=== PATIENT | male | born 1940 | race Caucasian/White ===

== ENCOUNTER 2021-11-13 19:26 | Inpatient (IN) | payer MEDICARE, BC ==
[~2021-11-13] VITALS: Ht 170.2 cm; Wt 78.9 kg
--- NOTE | 2021-11-13 19:30 | NUR ---
BIBRA FOR C/O O2 DESATURATION. AT [facility] PT USES 10LPM 02 VIA NC AND MASK AT HOME DUE TO HX OF CHF AND COPD. PER SON, PT HAS BEEN DESATURATING FOR THE PAST 3DAYS THE HIGHEST BEING 80S O2 SAT. TODAY PT WAS NOTED TO HAVE O2 IN THE 30S WITH INCREASED SOB AND PALE SKIN. WAS GIVEN NITRO AND ALBUTEROL EMBEDDER AND PLACED ON CPAP WITH EMS. PT CHANGED INTO GOWN AND PLACED ON MONITOR. RT AND MD AT BEDSIDE.
--- NOTE | 2021-11-13 19:30 | NUR ---
Note undone in ED - 11/13/21 at 2023 by SHARI 81-year-old male with a history of COPD, CHF presenting with hypoxic respiratory distress. The patient cannot provide any additional history at this time secondary to respiratory distress. The patient's son states that over the last 3 days his oxygen saturations have continued to decrease. Patient has been at most of the last few days with O2 saturations in the upper 80s despite using both nasal cannula and simple mask on their high settings. This evening patient continued to have increased shortness of breath and was lying down trying to rest when patient son noted that his O2 saturations were in the 30s and the patient was pale. EMS was called and found the patient satting in the 60s. They placed the patient on CPAP and gave nitroglycerin and albuterol with improvement of his oxygen saturations BIBRA FOR C/O O2 DESATURATION. AT [facility] PT USES 10LPM 02 VIA NC AND MASK AT HOME DUE TO HX OF CHF AND COPD. PER SON, PT HAS BEEN DESATURATING FOR THE PAST 3DAYS THE HIGHEST BEING 80S O2 SAT. TODAY PT WAS NOTED TO HAVE O2 IN THE 30S WITH INCREASED SOB AND PALE SKIN. WAS GIVEN NITRO AND ALBUTEROL MEDICAL SCIENTIFIC OFFICER AND PLACED ON CPAP WITH EMS. PT CHANGED INTO GOWN AND PLACED ON MONITOR. RT AND MD AT BEDSIDE.
--- NOTE | 2021-11-13 19:31 | NUR ---
EMT AT BEDSIDE FOR EKG
--- NOTE | 2021-11-13 19:36 | NUR ---
20G IV LINE ESTABLISHED AT . BLOOD DRAWN AND SENT TO LAB.
--- NOTE | 2021-11-13 19:44 | NUR ---
XRAY AT BEDSIDE
--- NOTE | 2021-11-13 19:47 | NUR ---
COVID SWAB COLLECTED AND SENT TO LAB
[2021-11-13] MEDS ORDERED: methylPREDNISolone SOD SUCC 125 MG/2ML VIAL ONE (19:49)
[2021-11-13] MEDS ORDERED: TERBUTALINE SULFATE 1 MG/ML VIAL ONE (19:49)
[2021-11-13] MEDS ORDERED: Magnesium 1GM/D5W 100ML PREMIX 200 ML IV ONE ×2 (19:49→20:00)
--- NOTE | 2021-11-13 19:57 | NUR ---
MRSA SWAB COLLECTED AND SENT TO LAB. PATIENT'S BELONGINGS LIST DONE.
--- NOTE | 2021-11-13 19:58 | NUR ---
RT CALLED TO ER, DR LONGORIA ORDERED BIPAP, PATIENT PLACED ON BIPAP 16 RR16. SPO2 90-91%. ABG IN ONE HOUR. BIPAP PLUGGED INTO RED OUTLET WITH ALARMS ON AND AUDIBLE.
[2021-11-13] MEDS ORDERED: methylPREDNISolone SOD SUCC 125 MG/2ML VIAL IV ONE (20:00)
[2021-11-13] MEDS ORDERED: TERBUTALINE SULFATE 1 MG/ML VIAL SQ ONE (20:00)
--- NOTE | 2021-11-13 20:15 | NUR ---
MOVE SHEET SUBMITTED.
[2021-11-13 20:19] LABS: BASOPHILS % (AUTO) 0.3 % (0.0-2.0); HEMATOCRIT 31 % (39-51); HEMOGLOBIN 9.8 g/dL (13.5-17.5); LYMPHOCYTES # (AUTO) 0.7 K/uL (0.8-4.8); LYMPHOCYTES % (AUTO) 8.1 % (20.0-44.0); MEAN CORPUSCULAR HGB CONC 31 g/dl (31.0-36.0); MEAN CORPUSCULAR VOLUME 99 fL (80-96); MONOCYTES # (AUTO) 0.2 K/uL (0.1-1.30); MONOCYTES % (AUTO) 2.5 % (2.0-12.0); NEUTROPHILS # (AUTO) 7.4 K/uL (1.8-8.9); NEUTROPHILS % (AUTO) 89.1 % (43.0-81.0); PLATELET COUNT (AUTO) 254 K/uL (150-450); RED BLOOD CELL COUNT(AUTO) 3.18 MIL/uL (4.5-6.0); WHITE BLOOD COUNT (AUTO) 8.3 K/uL (4.3-11.0)
[2021-11-13] MEDS ORDERED: FUROSEMIDE 40 MG/4 ML VIAL IV ONE (20:30)
--- NOTE | 2021-11-13 20:40 | NUR ---
RT AT BEDSIDE FOR ABG
[2021-11-13] MEDS ORDERED: FUROSEMIDE 40 MG/4 ML VIAL ONE (20:47)
[2021-11-13 20:53] LABS: ALANINE AMINOTRANSFERASE 28 U/L (12-78); ALBUMIN 3.6 g/dL (3.4-5.0); ALKALINE PHOSPHATASE 84 U/L (46-116); ASPARTATE AMINOTRANSFERASE 11 U/L (15-37); BILIRUBIN,DIRECT 0.1 mg/dL (0.0-0.2); BILIRUBIN,TOTAL 0.4 mg/dL (0.2-1.0); CARBON DIOXIDE 22 mmol/L (21-32); CHLORIDE 97 mmol/L (98-107); CREATININE 4.2 mg/dL (0.6-1.3); POTASSIUM 5.7 mmol/L (3.5-5.1); SODIUM SERUM 134 mmol/L (136-145); TOTAL PROTEIN, SERUM 7.6 g/dL (6.4-8.2)
--- NOTE | 2021-11-13 20:53 | NUR ---
CRITICAL LAB LACTIC ACID 6.7
[2021-11-13 20:54] LABS: ABG BASE EXCESS -8.4 mmol/L; ABG PH 7.255 (7.350-7.450); COHb 0.3 % (0.5-1.5); MetHb 0.4 % (0.0-1.5); O2Hb 90.5 % (94.0-97.0); SITE, ABG Left Radial; VENT MODE, BG BIPAP 16/8 RR16
[2021-11-13 20:56] LABS: GLUCOSE 431 mg/dL (74-106); UREA NITROGEN, BLOOD 103 mg/dL (7-18)
--- NOTE | 2021-11-13 20:56 | NUR ---
CRITICAL: GLUCOSE 431 . AWARE
--- NOTE | 2021-11-13 20:58 | NUR ---
CRITICAL: TROPONIN 354
--- NOTE | 2021-11-13 21:07 | NUR ---
epic panel paged
[2021-11-13] MEDS ORDERED: INSULIN REGULAR, HUMAN 100 UNIT/ML 10 ML VIAL SQ ONE (21:30)
--- NOTE | 2021-11-13 21:33 | NUR ---
EPIC PANEL PAGED
--- NOTE | 2021-11-13 21:54 | NUR ---
POC BG 439
[2021-11-13] MEDS ORDERED: FERR325T23 PO (22:24)
[2021-11-13] MEDS ORDERED: PRED20TA GT (22:24)
[2021-11-13] MEDS ORDERED: METO50TA16 PO (22:24)
[2021-11-13] MEDS ORDERED: PITA4TAB PO (22:24)
[2021-11-13] MEDS ORDERED: DOXY100C2 PO (22:24)
[2021-11-13] MEDS ORDERED: DRON400T6 PO (22:24)
[2021-11-13] MEDS ORDERED: PANT40TA49 PO (22:24)
[2021-11-13] MEDS ORDERED: CEFD300C3 PO (22:24)
[2021-11-13] MEDS ORDERED: BUME2TAB7 PO (22:24)
[2021-11-13] MEDS ORDERED: DOXY-326 PO (22:24)
--- NOTE | 2021-11-13 22:28 | NUR ---
TROPONIN 337
[2021-11-13] MEDS ORDERED: MAG HYDROX/AL HYDROX/SIMETH 30 ML UDC PO PRN (23:00)
[2021-11-13] MEDS ORDERED: Z GUARD REMEDY 4 OZ OINT TP PRN (23:00)
[2021-11-13] MEDS ORDERED: ZOLPIDEM TARTRATE 5 MG TABLET PO PRN (23:00)
[2021-11-13] MEDS ORDERED: ONDANSETRON HCL/PF 4 MG/2 ML VIAL IVP PRN (23:00)
[2021-11-13] MEDS ORDERED: MAGNESIUM HYDROXIDE 30 ML UDC PO PRN (23:00)
--- NOTE | 2021-11-13 23:07 | NUR ---
REPORT GIVEN TO NETO
[2021-11-13] MEDS ORDERED: DEXTROSE 50%-WATER 50 ML DISP.SYRIN IV PRN (23:30)
--- NOTE | 2021-11-13 23:30 | NUR ---
PT TRANSPORTED TO ROOM 256 ON RECEIVING WEIGHER PER ACLS PROTOCOL VIA GURNEY WITH RT AND RN. PT ON 15LPM NRB FOR TRANSPORT TO ROOM 256. V/S STABLE AT TIME OF TRANSFER.
--- NOTE | 2021-11-13 23:31 | NUR ---
RT TRANSFERED PT ON 25LPM NON REBREATHER MASK, WITH RN PER ACLS PROTOCOL. BIPAP SET UP IN ICU RM 256. BIPAP PLUGGED INTO RED WALL WITH ALARMS ON AND AUDIBLE. NO SOB OR RESPIRATORY DISTRESS NOTED.
[2021-11-13 23:38] VITALS: BP 135/72
[2021-11-13 23:40] VITALS: BP 135/72
[2021-11-13] MEDS: BLOOD SUGAR DIAGNOSTIC 1 EACH STRIP IN SCH (23:54)
[2021-11-14] VITALS (29 sets, daily range): BP systolic 105–176; BP diastolic 41–80
[2021-11-14] MEDS: INSULIN REGULAR, HUMAN 100 UNIT/ML 3 ML VIAL SQ PRN ×5 (00:18→23:37)
[2021-11-14 01:47] LABS: POTASSIUM 4.8 mmol/L (3.5-5.1)
[2021-11-14] MEDS ORDERED: BUMETANIDE INJ 4 MG in IV D5W 24 ML IV ONE (03:30)
[2021-11-14] MEDS ORDERED: BUMETANIDE INJ 0.25 MG/ML VIAL ONE ×2 (04:44)
[2021-11-14 05:04] LABS: BASOPHILS % (AUTO) 0.1 % (0.0-2.0); HEMATOCRIT 29 % (39-51); HEMOGLOBIN 9.5 g/dL (13.5-17.5); LYMPHOCYTES # (AUTO) 0.4 K/uL (0.8-4.8); LYMPHOCYTES % (AUTO) 6.9 % (20.0-44.0); MEAN CORPUSCULAR HGB CONC 33 g/dl (31.0-36.0); MEAN CORPUSCULAR VOLUME 94 fL (80-96); MONOCYTES # (AUTO) 0.1 K/uL (0.1-1.30); MONOCYTES % (AUTO) 2.1 % (2.0-12.0); NEUTROPHILS # (AUTO) 4.9 K/uL (1.8-8.9); NEUTROPHILS % (AUTO) 90.9 % (43.0-81.0); PLATELET COUNT (AUTO) 212 K/uL (150-450); WHITE BLOOD COUNT (AUTO) 5.4 K/uL (4.3-11.0)
[2021-11-14 05:11] LABS: CALCIUM, SERUM 8.9 mg/dL (8.5-10.1); CARBON DIOXIDE 24 mmol/L (21-32); CHLORIDE 100 mmol/L (98-107); GLUCOSE 236 mg/dL (74-106); MAGNESIUM 2.1 mg/dL (1.8-2.4); PHOSPHORUS 4.9 mg/dL (2.5-4.9); POTASSIUM 4.6 mmol/L (3.5-5.1); SODIUM SERUM 138 mmol/L (136-145)
[2021-11-14 05:14] LABS: CHOLESTEROL 132 mg/dL (<200); HDL CHOLESTEROL 61 mg/dL (40-60); LDL 56 mg/dL (0-99); TRIGLYCERIDES 69 mg/dL (30-150)
[2021-11-14 05:28] LABS: UREA NITROGEN, BLOOD 104 mg/dL (7-18)
[2021-11-14] MEDS: BLOOD SUGAR DIAGNOSTIC 1 EACH STRIP IN SCH ×4 (05:54→23:36)
--- NOTE | 2021-11-14 07:30 | NUR ---
RN OPENING NOTE PT OBSERVED IN BED WITH HOB >30. PT IS ON BIPAP WITH ALL PRESCRIBED SETTINGS TOLERATING WELL WITH NO SIGNS OF DISTRESS OR LABORED BREATHING O2 SAT 92% WITH A GOAL OF 88% AND ABOVE. PT IS A/OX4 AND ON TELE MONITOR WITH RBBB. PT IS NPO AT THIS TIME WHILE ON BIPAP. IV ACCESS R WRIST 20G AND L FA20G INFUSING WITH BUMEX. BED IS LOCKED IN LOWEST POSITION X2 BED RAILS UP AND ALL HOSPITAL SAFETY PROTOCOLS ARE IN PLACE. WILL CONTINUE TO MONITOR THIS SHIFT.
[2021-11-14] MEDS ORDERED: HEPARIN INFUSION/D5W 500 ML IV PRN (08:00)
--- NOTE | 2021-11-14 08:25 | NUR ---
RN NOTE: DR. DEVI THIS NURSE MADE CONTACT WITH DR. DEVI VIA CELL PHONE. HE IS PTS PULMONARY CRITICAL CARE DOCTOR OUTSIDE OF THIS HOSPITAL. HIS PHONE NUMBER IS: [phone]
[2021-11-14] MEDS ORDERED: BUMETANIDE (1 MG) 1 MG TABLET PO SCH (08:30)
[2021-11-14] MEDS ORDERED: FUROSEMIDE 40 MG/4 ML VIAL IV SCH (09:00)
[2021-11-14] MEDS ORDERED: CEFDINIR 300 MG PO SCH (09:00)
[2021-11-14] MEDS: ATORVASTATIN 10 MG TABLET PO SCH (09:00)
[2021-11-14] MEDS ORDERED: FERROUS SULFATE (325 MG) 325 MG/TAB TABLET PO SCH (09:00)
[2021-11-14] MEDS ORDERED: METOPROLOL TARTRATE 50 MG TABLET PO SCH (09:00)
[2021-11-14] MEDS: PANTOPRAZOLE 40 MG TABLET.DR PO SCH (09:00)
[2021-11-14] MEDS: ASPIRIN 81 MG TAB.CHEW PO SCH (09:00)
[2021-11-14] MEDS: predniSONE 20 MG TABLET PO SCH (09:00)
[2021-11-14] MEDS ORDERED: DRONEDARONE HYDROCHLORIDE 400 MG TABLET PO SCH (09:00)
[2021-11-14] MEDS: DOXYCYCLINE HYCLATE (100 MG) 100 MG TABLET PO SCH ×2 (09:00→21:00)
[2021-11-14] MEDS: FUROSEMIDE 100 MG/10 ML VIAL IV SCH ×3 (09:17→17:05)
--- NOTE | 2021-11-14 10:15 | NUR ---
RN NOTE: FC PER DR. SU, FC WAS INSERTED TO MONITOR CRITICAL OUTPUT.
--- NOTE | 2021-11-14 10:25 | NUR ---
RN NOTE: UA UA SPECIMEN COLLECTED AT THIS TIME. LAB NOTIFIED OF SPECIMEN PICKUP
[2021-11-14 10:37] LABS: THYROID STIMULATING HORMONE 0.638 uIU/mL (0.358-3.74)
[2021-11-14 11:13] LABS: BILIRUBIN,URINE NEGATIVE (NEGATIVE); LEUKOCYTE ESTERASE ,URINE NEGATIVE (NEGATIVE); NITRITE, URINE NEGATIVE (NEGATIVE); PROTEIN,URINE NEGATIVE (NEGATIVE); UGLUCOSE 100 MG/DL mg/dL (NEGATIVE); UROBILINOGEN,URINE 0.2 EU/dL (0.2)
[2021-11-14 11:16] LABS: COLOR,URINE STRAW (YELLOW)
[2021-11-14 11:16] LABS: ABG BASE EXCESS 0.1 mmol/L; ABG OXYGEN SATURATION 93.1 % (92.0-98.5); ABG PCO2 48.2 mmHg (35.0-45.0); ABG PO2 71.6 mmHg (75.0-100.0); AaDO2 593.2 mmHg; COHb 0.3 % (0.5-1.5); MetHb 0.2 % (0.0-1.5); O2Hb 92.6 % (94.0-97.0); SITE, ABG Left Brachial; VENT MODE, BG ST 16/8 R16 100%
[2021-11-14 11:46] LABS: RBC,URINE 0-2 /HPF (0-2)
[2021-11-14 11:47] LABS: BACTERIA,URINE Many /HPF (None Seen); SQUAMOUS EPITHELIAL CELL,UR Few /HPF (None Seen)
[2021-11-14] MEDS ORDERED: HEPARIN SODIUM, PORCINE 5000 UNITS/1 ML VIAL IV ONE (12:30)
[2021-11-14 14:00] LABS: ABG BASE EXCESS -0.7 mmol/L; ABG OXYGEN SATURATION 90.9 % (92.0-98.5); ABG PCO2 43.3 mmHg (35.0-45.0); ABG PH 7.373 (7.350-7.450); ABG PO2 63.9 mmHg (75.0-100.0); AaDO2 605.8 mmHg; COHb 0.1 % (0.5-1.5); MetHb 0.1 % (0.0-1.5); O2Hb 90.7 % (94.0-97.0); SITE, ABG Left Brachial; VENT MODE, BG NRB
--- NOTE | 2021-11-14 18:45 | NUR ---
RN CLOSING NOTE PT IS IN BED WITH HOB >30. PT IS ON NON-REBREATHER 15L TOLERATING WELL WITH NO SIGNS OF DISTRESS OR LABORED BREATHING O2 SAT 91% WITH A GOAL OF 88% AND ABOVE. PT IS A/OX4 AND ON TELE MONITOR WITH RBBB. FC IS IN PLACE DRAINING URINE TO GRAVITY -2000ML. PT IS NPO AT THIS TIME, BUT DID TOLERATE SIPS OF WATER AND APPLE SAUCE. IV ACCESS R WRIST 20G AND L FA20G INFUSING WITH HEPARIN @ 1175 UNITS/HR. BED IS LOCKED IN LOWEST POSITION X2 BED RAILS UP AND ALL HOSPITAL SAFETY PROTOCOLS ARE IN PLACE. WILL ENDORSE TO EQUIPMENT DRIVER NURSE FOR CITLALY.
--- NOTE | 2021-11-14 20:10 | NUR ---
ICU/COPYWRITING INTERN PTT CAME BACK AT 52.10, THERE IS NO CHANGE AT THIS TIME. NEXT PTT IS IN THE MORNING. THIS WAS DOCUMENTED IN THE IV SPREAD SHEET.
--- NOTE | 2021-11-14 20:30 | NUR ---
ICU/HYDRO PLANT TECHNICIAN 2100 MEDICATION NOT GIVEN DUE TO PT IS NPO.
--- NOTE | 2021-11-14 21:00 | NUR ---
ICU/POLE INSPECTOR NEXT PTT FOR HEPARIN IS FOR 0500
--- NOTE | 2021-11-14 22:30 | NUR ---
ICU/LAUNCH ENGINEER PT REQUESTED BRANDO FOR SLEEP, CALLED THE CERTIFIED OPHTHALMIC TECHNOLOGIST PADMINI WHO SAID OK. PT IS CURRENTLY ON A NON REBREATHER MASK AT 15 LITERS SATURATION IS 93%. WILL CONTINUE TO MONITOR THIS PT.
[2021-11-14] MEDS: ZOLPIDEM TARTRATE 5 MG TABLET PO PRN (23:22)
[2021-11-15] VITALS (50 sets, daily range): BP systolic 51–120; BP diastolic 32–61
--- NOTE | 2021-11-15 00:45 | NUR ---
ICU/HEALTHCARE ARCHITECT FAMILY REMAIN AT BEDSIDE, ACTIVE IN PT'S CARE. PT APPEARS CALM.
--- NOTE | 2021-11-15 04:00 | NUR ---
ICU/DTP OPERATOR PT WAS CONFUSED PULLED OUT IV, NEW IV STARTED TO LEFT WRIST #20G.
[2021-11-15 04:46] LABS: BASOPHILS % (AUTO) 0.4 % (0.0-2.0); EOSINOPHILS % (AUTO) 0.4 % (0.0-6.0); HEMATOCRIT 31 % (39-51); LYMPHOCYTES # (AUTO) 0.7 K/uL (0.8-4.8); LYMPHOCYTES % (AUTO) 5.4 % (20.0-44.0); MEAN CORPUSCULAR HGB CONC 32 g/dl (31.0-36.0); MEAN CORPUSCULAR VOLUME 94 fL (80-96); MONOCYTES # (AUTO) 0.7 K/uL (0.1-1.30); MONOCYTES % (AUTO) 5.3 % (2.0-12.0); NEUTROPHILS # (AUTO) 11.4 K/uL (1.8-8.9); NEUTROPHILS % (AUTO) 88.5 % (43.0-81.0); PLATELET COUNT (AUTO) 216 K/uL (150-450); RED BLOOD CELL COUNT(AUTO) 3.32 MIL/uL (4.5-6.0); WHITE BLOOD COUNT (AUTO) 12.8 K/uL (4.3-11.0)
[2021-11-15 05:23] LABS: ALANINE AMINOTRANSFERASE 21 U/L (12-78); ALBUMIN 3.2 g/dL (3.4-5.0); ALKALINE PHOSPHATASE 73 U/L (46-116); ASPARTATE AMINOTRANSFERASE 9 U/L (15-37); BILIRUBIN,TOTAL 0.8 mg/dL (0.2-1.0); CARBON DIOXIDE 32 mmol/L (21-32); CHLORIDE 102 mmol/L (98-107); CREATININE 3.4 mg/dL (0.6-1.3); GLUCOSE 210 mg/dL (74-106); MAGNESIUM 1.8 mg/dL (1.8-2.4); PHOSPHORUS 3.8 mg/dL (2.5-4.9); POTASSIUM 3.9 mmol/L (3.5-5.1); SODIUM SERUM 144 mmol/L (136-145)
--- NOTE | 2021-11-15 05:30 | NUR ---
pt remained on nrb 15l throughout shift. pt spo2 88-94%. pt family requesting for the pt to remain on nrb and not be placed on bipap. Addendum: 11/15/21 at 0621 by CHRISTOPHER ABRAMS RT Amended: Links added.
[2021-11-15 05:32] LABS: UREA NITROGEN, BLOOD 95 mg/dL (7-18)
--- NOTE | 2021-11-15 05:50 | NUR ---
ICU/FORGE HELPER CRITICAL LAB OF BUN-95, YESTERDAY 104 AND TROP-304, YESTERDAY 371. THESE ARE TRENDING IN THE RIGHT DIRECTION.
--- NOTE | 2021-11-15 06:00 | NUR ---
ICU/MIDDLEWARE SOLUTIONS ARCHITECT PT'S MORNING PTT IS 39.6, HEPARIN WAS INCREASED 150 UNITS FOR A TOTAL 1325. WITH A NOON PTT.
[2021-11-15] MEDS: BLOOD SUGAR DIAGNOSTIC 1 EACH STRIP IN SCH ×3 (06:08→17:05)
[2021-11-15] MEDS: INSULIN REGULAR, HUMAN 100 UNIT/ML 3 ML VIAL SQ PRN ×4 (06:14→23:53)
--- NOTE | 2021-11-15 08:00 | NUR ---
rn notes received patient in the bed a/o x4, on o2-88% no-rebreather mask. patent has no acute respiratory distress, lab values reviewed, and hospitalist aware of. patient on heparin drip on left wrist intact, bs-216 mg/dl, patient refused pain, independent moving in the bed. Arriaga draining via gravity. due medication administered, grand son next to the bed. call light within to reach. will follow up.
[2021-11-15] MEDS: predniSONE 20 MG TABLET PO SCH (08:53)
[2021-11-15] MEDS: ASPIRIN 81 MG TAB.CHEW PO SCH (08:53)
[2021-11-15] MEDS: ATORVASTATIN 10 MG TABLET PO SCH (08:53)
[2021-11-15] MEDS: DOXYCYCLINE HYCLATE (100 MG) 100 MG TABLET PO SCH (08:54)
[2021-11-15] MEDS: PANTOPRAZOLE 40 MG TABLET.DR PO SCH (08:54)
[2021-11-15] MEDS: FUROSEMIDE 100 MG/10 ML VIAL IV SCH ×3 (09:00→17:00)
--- NOTE | 2021-11-15 09:00 | NUR ---
rn notes D/C heparin drip at this time per Dr Bell, but patient continue heparin sq, held at this time Lasix dose because of low bp-81/39 dr Bell aware of. due medication administered, patient able to turn and reposition self in the bed.
[2021-11-15] MEDS: HEPARIN SODIUM, PORCINE 5000 UNITS/1 ML VIAL SQ SCH ×2 (11:28→20:11)
--- NOTE | 2021-11-15 11:30 | NUR ---
rn notes held Lasix iv push at this time because patient bp was low 81/39, Dr Bell aware of.
[2021-11-15] MEDS ORDERED: MISCELLANEOUS MED 1 EA EA XX ONE (14:00)
--- NOTE | 2021-11-15 17:07 | NUR ---
rn notes held lasix at this time because of low bp 89/47, p-88, o2-92%, bs-379mg/dl, coverage given, due medication administered.
[2021-11-15] MEDS: POLYETHYLENE GLYCOL 3350 17 GM POWD.PACK PO PRN (17:18)
--- NOTE | 2021-11-15 18:21 | NUR ---
rn notes patient resting at this time, no acute respiratory distress o02-92%, bp 97/45, due medication administered, bs-379mg/dl coverage given. Arriaga draining via gravity. son next to the bed. endorsed oncoming nurse follow raj.
--- NOTE | 2021-11-15 19:30 | NUR ---
OPENING RN NOTES, RECEIVED PATIENT IN BED AWAKE A/O X4, AT 15LPM VIA NRM WITH OPTIMAL O2 SAT LEVEL, NO SOB/DISTRESS NOTED AT THIS TIME, VS STABLE AT THIS TIME, NSR WITH BBB IN TELE MONITOR WITH HR 70S AT THIS TIME, LEFT WRIST IV PATENT AND INTACT, NO FLUIDS INFUSING AT THIS TIME, F/C IN PLACE PATENTCY INTACT, DRAINING YELLOW URINE BY GRAVITY, BED LOCK AN DIN LOWEST POSITION, S/R OF BED UPX3, CALL LIGHT W/I REACH, WILL CONTINUE TO MONITOR CLOSELY.
[2021-11-15] MEDS ORDERED: CEFTRIAXONE 1 G in IV D5W 50 ML IV SCH (20:00)
[2021-11-15] MEDS: ZOLPIDEM TARTRATE 5 MG TABLET PO PRN (21:56)
[2021-11-16] VITALS (32 sets, daily range): BP systolic 85–136; BP diastolic 41–72
[2021-11-16] MEDS: BLOOD SUGAR DIAGNOSTIC 1 EACH STRIP IN SCH ×5 (00:14→23:03)
[2021-11-16 04:25] LABS: BASOPHILS % (AUTO) 0.2 % (0.0-2.0); EOSINOPHILS % (AUTO) 0.3 % (0.0-6.0); HEMATOCRIT 28 % (39-51); HEMOGLOBIN 9.4 g/dL (13.5-17.5); LYMPHOCYTES # (AUTO) 0.8 K/uL (0.8-4.8); MEAN CORPUSCULAR HGB CONC 33 g/dl (31.0-36.0); MEAN CORPUSCULAR VOLUME 94 fL (80-96); MONOCYTES # (AUTO) 0.5 K/uL (0.1-1.30); MONOCYTES % (AUTO) 4.8 % (2.0-12.0); NEUTROPHILS # (AUTO) 8.4 K/uL (1.8-8.9); NEUTROPHILS % (AUTO) 86.7 % (43.0-81.0); PLATELET COUNT (AUTO) 160 K/uL (150-450); RED BLOOD CELL COUNT(AUTO) 3.02 MIL/uL (4.5-6.0); WHITE BLOOD COUNT (AUTO) 9.7 K/uL (4.3-11.0)
[2021-11-16 04:35] LABS: ALANINE AMINOTRANSFERASE 18 U/L (12-78); ALBUMIN 3.1 g/dL (3.4-5.0); ALKALINE PHOSPHATASE 68 U/L (46-116); ASPARTATE AMINOTRANSFERASE 8 U/L (15-37); BILIRUBIN,TOTAL 0.6 mg/dL (0.2-1.0); CALCIUM, SERUM 8.9 mg/dL (8.5-10.1); CARBON DIOXIDE 36 mmol/L (21-32); CHLORIDE 101 mmol/L (98-107); GLUCOSE 245 mg/dL (74-106); MAGNESIUM 1.8 mg/dL (1.8-2.4); PHOSPHORUS 3.7 mg/dL (2.5-4.9); POTASSIUM 3.8 mmol/L (3.5-5.1); SODIUM SERUM 141 mmol/L (136-145); TOTAL PROTEIN, SERUM 6.7 g/dL (6.4-8.2)
[2021-11-16 04:48] LABS: UREA NITROGEN, BLOOD 84 mg/dL (7-18)
--- NOTE | 2021-11-16 05:25 | NUR ---
INFORMED PADMINI CREDIT CARD SPECIALIST THAT PATIENT WITH CRITICAL RESULTS THIS [id number] FOR HS TROPONIN 398, AND YESTERDAY WAS 304, PER PADMINI TO RECHECKED TROPONIN IN 4HRS, ORDER NOTED AND CARRIED OUT.
[2021-11-16] MEDS: INSULIN REGULAR, HUMAN 100 UNIT/ML 3 ML VIAL SQ PRN ×4 (06:28→23:05)
--- NOTE | 2021-11-16 06:55 | NUR ---
CLOSING RN NOTES, PATIENT IN BED AWAKE A/O X4, CONTINUE AT 15LPM VIA NRM WITH OPTIMAL O2 SAT LEVEL, RT TRIED TO PUT PT ON SIMPLE MASK 15L, X2 HRS AND PATIENT DROPPED O2 TO LOW 80S, PLACED PT BACK TO 15LPM VIA NRM, NO SOB/DISTRESS NOTED AT THIS TIME, VS STABLE AT THIS TIME, NSR WITH BBB IN TELE MONITOR WITH HR 60-80S DURING THE NIGHT, LEFT WRIST IV PATENT AND INTACT, NO FLUIDS INFUSING AT THIS TIME, STARTED ROCEPHIN LAST NIGHT, F/C IN PLACE PATENTCY INTACT, WITH GOOD URINARY OUTPUT 1300, BED LOCK AND IN LOWEST POSITION, S/R OF BED UPX3, CALL LIGHT W/I REACH, WILL ENDORSE CONTINUITY OF CARE TO ONCOMING NURSE.
[2021-11-16] MEDS ORDERED: BUMETANIDE INJ 8 MG in IV NS 0.9% 48 ML IV ONE (08:00)
--- NOTE | 2021-11-16 08:00 | NUR ---
RN NOTES RECEIVED PATIENT A/A/O X4, CONTINUE AT 15 LPM VIA NON REBREATHER MASK WITH OPTIMAL O2 SAT LEVEL ON BEDSIDE MONITOR IS 93%. PATIENT HAS NO ACUTE RESPIRATORY DISTRESS, LAB VALUES REVIEWED, SEEN PATIENT VIA WATCH PARTS GRINDER AND HOSPITALIST. DUE MEDICATION ADMINISTERED, PATIENT TOLERATED BREAKFAST WELL. REFUSED PAIN. MORRIS TOLERATING WELL. CALL LIGHT WITHIN TO REACH. GRANDSON NEXT TO THE BED. WILL FOLLOW UP.
[2021-11-16] MEDS: predniSONE 20 MG TABLET PO SCH (08:04)
[2021-11-16] MEDS: ASPIRIN 81 MG TAB.CHEW PO SCH (08:04)
[2021-11-16] MEDS: ATORVASTATIN 10 MG TABLET PO SCH (08:04)
[2021-11-16] MEDS: HEPARIN SODIUM, PORCINE 5000 UNITS/1 ML VIAL SQ SCH ×2 (08:05→20:09)
[2021-11-16] MEDS: PANTOPRAZOLE 40 MG TABLET.DR PO SCH (08:05)
[2021-11-16] MEDS: [UNRECOGNIZED DRUG - OTHER] PO SCH (08:07)
--- NOTE | 2021-11-16 11:30 | NUR ---
RN NOTES CT OF CHEST W/O CONTRAST DONE, BS-279 MG/DL COVERAGE GIVEN, INFUSING BUMEX 1 G IV DRIP INTACT. PATIENT ON NON REBREATHER MASK 15L. ASSIST BACK TO THE BED. WILL FOLLOW UP.
[2021-11-16] MEDS: MEROPENEM 500 MG in IV NS 0.9% 50 ML IV SCH (13:31)
--- NOTE | 2021-11-16 18:27 | NUR ---
rn notes BS-394 mg/dl coverage given, no acute respiratory distress, patient on non rebreather mask @15l.due medication administered ,family next to the bed. endorsed oncoming nurse follow plan of care.
--- NOTE | 2021-11-16 19:30 | NUR ---
RN NOTE RECEIVED PATIENT IN BED, AWAKE, ALERT AND VERBALLY RESPONSIVE. AOX4. ABLE TO MAKE NEEDS KNOWN. ROMANSH IS MAIN LANGUAGE. BREATHING EVEN AND UNLABORED AT THIS TIME. ON 15L/MIN NON-REBREATHER MASK. OXYGEN SATURATION OF 88-94 PERCENT VIA BEDSIDE MONITOR WITH GOOD WAVEFORM. ON TELE MONITORING. PATIENT DENIES CHEST PAIN. PATIENT DENIES SHORTNESS OF BREATH. SKIN IS WARM AND DRY TO TOUCH. LEFT WRIST 20G PIV. INTACT AND ABLE TO FLUSH WITH NO INFILTRATION. INDWELLING MORRIS CATHETER INTACT. DRAINING ADEQUATE YELLOW URINE. NO HEMATURIA AT THIS TIME. NO BLEEDING. ASSISTED WITH TURNING AND REPOSITIONING. BED LOW, IN LOCKED POSITION. WILL CONTINUE TO MONITOR.
[2021-11-16] MEDS: POLYETHYLENE GLYCOL 3350 17 GM POWD.PACK PO PRN (21:05)
[2021-11-16] MEDS: ZOLPIDEM TARTRATE 5 MG TABLET PO PRN (23:42)
[2021-11-17] VITALS (24 sets, daily range): BP systolic 87–149; BP diastolic 28–68
[2021-11-17] MEDS: MEROPENEM 500 MG in IV NS 0.9% 50 ML IV SCH ×2 (00:01→13:44)
[2021-11-17 04:31] LABS: BASOPHILS % (AUTO) 0.1 % (0.0-2.0); EOSINOPHILS % (AUTO) 1.4 % (0.0-6.0); HEMATOCRIT 28 % (39-51); HEMOGLOBIN 9.1 g/dL (13.5-17.5); LYMPHOCYTES # (AUTO) 0.9 K/uL (0.8-4.8); MEAN CORPUSCULAR HGB CONC 33 g/dl (31.0-36.0); MEAN CORPUSCULAR VOLUME 94 fL (80-96); MONOCYTES # (AUTO) 0.5 K/uL (0.1-1.30); MONOCYTES % (AUTO) 4.7 % (2.0-12.0); NEUTROPHILS # (AUTO) 8.5 K/uL (1.8-8.9); NEUTROPHILS % (AUTO) 84.8 % (43.0-81.0); PLATELET COUNT (AUTO) 162 K/uL (150-450); RED BLOOD CELL COUNT(AUTO) 2.95 MIL/uL (4.5-6.0)
[2021-11-17 05:09] LABS: ALANINE AMINOTRANSFERASE 17 U/L (12-78); ALBUMIN 3.1 g/dL (3.4-5.0); ALKALINE PHOSPHATASE 71 U/L (46-116); ASPARTATE AMINOTRANSFERASE 13 U/L (15-37); BILIRUBIN,TOTAL 0.6 mg/dL (0.2-1.0); CALCIUM, SERUM 8.9 mg/dL (8.5-10.1); CARBON DIOXIDE 36 mmol/L (21-32); CHLORIDE 97 mmol/L (98-107); CREATININE 2.7 mg/dL (0.6-1.3); GLUCOSE 253 mg/dL (74-106); MAGNESIUM 1.5 mg/dL (1.8-2.4); PHOSPHORUS 2.9 mg/dL (2.5-4.9); POTASSIUM 3.8 mmol/L (3.5-5.1); SODIUM SERUM 141 mmol/L (136-145); TOTAL PROTEIN, SERUM 6.9 g/dL (6.4-8.2); UREA NITROGEN, BLOOD 76 mg/dL (7-18)
[2021-11-17] MEDS: BLOOD SUGAR DIAGNOSTIC 1 EACH STRIP IN SCH ×4 (05:18→23:13)
[2021-11-17] MEDS: INSULIN REGULAR, HUMAN 100 UNIT/ML 3 ML VIAL SQ PRN ×4 (05:20→23:11)
--- NOTE | 2021-11-17 07:15 | NUR ---
RN NOTE RECEIVED PATIENT IN BED RESTING ALERT ORIENTED X4 VERBAL KENYAN SPEAKING ON 15l OXYGEN O2:84% IV SITE IS ON LEFT WRIST INTACT PATENT,MORRIS CATH IN PLACE URINE DRAINING YELLOW/CLEAR BY GRAVITY,SON ON BEDSIDE,SAFETY MEASURE IMPLEMENT,HEAD OF BED ELEVATED,CALL LIGHT WITHIN REACH CONTINUE TO MONITOR.
[2021-11-17] MEDS: ATORVASTATIN 10 MG TABLET PO SCH (09:04)
[2021-11-17] MEDS: predniSONE 20 MG TABLET PO SCH (09:05)
[2021-11-17] MEDS: PANTOPRAZOLE 40 MG TABLET.DR PO SCH (09:05)
[2021-11-17] MEDS: ASPIRIN 81 MG TAB.CHEW PO SCH (09:05)
[2021-11-17 09:10] LABS: ABG BASE EXCESS 8.4 mmol/L; ABG OXYGEN SATURATION 88.5 % (92.0-98.5); ABG PCO2 47.4 mmHg (35.0-45.0); ABG PH 7.463 (7.350-7.450); ABG PO2 55.6 mmHg (75.0-100.0); COHb 0.2 % (0.5-1.5); MetHb 0.2 % (0.0-1.5); O2Hb 88.1 % (94.0-97.0); SITE, ABG Right Radial; VENT MODE, BG NRB
[2021-11-17] MEDS: [UNRECOGNIZED DRUG - OTHER] PO SCH (09:12)
[2021-11-17] MEDS: HEPARIN SODIUM, PORCINE 5000 UNITS/1 ML VIAL SQ SCH ×2 (09:12→20:02)
[2021-11-17] MEDS ORDERED: BUMETANIDE INJ 8 MG in IV NS 0.9% 48 ML IV ONE (10:00)
[2021-11-17 10:45] LABS: IRON, SERUM 34 ug/dl (50-175); TOTAL IRON BINDING CAPACITY 222 ug/dl (250-450)
--- NOTE | 2021-11-17 18:36 | NUR ---
RN NOTE PATIENT REMAINS ON ALERT ORIENTEDX4 VERBALLY RESPONSIVE ON 15L NON REBREATHER MASK O2:BETWEEN 88-92% IV SITE IS ON LEFT AND RIGHT WRIST INTACT PATENT,MORRIS CATH IN PLACE URINE DRAINING YELLOW/CLEAR BY GRAVITY,ALL DUE MEDS GIVEN MD ORDERED,KEPT CALL LIGHT WITHIN REACH,HEAD OF THE BED ELEVATED,WILL ENDORSE NEXT COMING SHIFT FOR CONTINUATION OF CARE.
--- NOTE | 2021-11-17 19:14 | NUR ---
RN NOTE RECEIVED PATIENT IN BED, AWAKE, ALERT, AND VERBALLY RESPONSIVE. ABLE TO MAKE NEEDS KNOWN. NO CHANGES IN MENTATION. BREATHING EVEN AND UNLABORED. PATIENT ON 15 L/MIN VIA NON-REBREATHER MASK WITH OXYGEN SATURATION OF 95 PERCENT VIA BEDSIDE MONITOR WITH GOOD WAVEFORM. TOLERATING VERY WELL. ON TELE MONITORING. PATIENT DENIES CHEST PAIN. SKIN WARM AND DRY TO TOUCH. RIGHT WRIST 20G AND LEFT HAND 20G PIV. CURRENTLY INFUSING BUMEX AT 10 CC/HR. NO INFILTRATION. INDWELLING MORRIS CATHETER DRAINING LIGHT YELLOW URINE. NO BLEEDING NOTED. ASSISTED PATIENT WITH TURNING AND REPOSITIONING. BED LOW, IN LOCKED POSITION. CALL LIGHT WITHIN REACH. WILL CONTINUE TO MONITOR.
[2021-11-17] MEDS: POLYETHYLENE GLYCOL 3350 17 GM POWD.PACK PO PRN (21:14)
--- NOTE | 2021-11-17 21:17 | NUR ---
RN NOTE PATIENT ASSISTED TO BEDSIDE COMMODE. PATIENT HAD 1 MODERATE SIZE BM, BROWN/SOFT. PATIENT AND GRANDSON AT BEDSIDE REQUESTING FOR MIRALAX. EXPLAINED TO PATIENT AND GRANDSON THAT MEDICATION MAY CAUSE DIARRHEA. VERBALIZED UNDERSTANDING. PER PATIENT, HE TAKES IT EVERY DAY AT HOME. ADMINISTERED MIRALAX PRN PER PATIENT REQUEST. WILL CONTINUE TO MONITOR.
[2021-11-17] MEDS: ZOLPIDEM TARTRATE 5 MG TABLET PO PRN (23:05)
--- NOTE | 2021-11-17 23:17 | NUR ---
RN NOTE PATIENT BLOOD SUGAR OF 401. PATIENT RECEIVED 10 UNITS INSULIN PER SLIDING SCALE. INFORMED DIE CAST TECHNICIAN MD. NO NEW ORDER. GRANDSON AT BEDSIDE AND FED PATIENT EARLIER.
[2021-11-18] VITALS (30 sets, daily range): BP systolic 89–132; BP diastolic 45–69
[2021-11-18] MEDS: MEROPENEM 500 MG in IV NS 0.9% 50 ML IV SCH ×2 (01:23→12:22)
[2021-11-18 05:22] LABS: BASOPHILS # (AUTO) 0.1 K/uL (0.0-0.2); BASOPHILS % (AUTO) 0.6 % (0.0-2.0); EOSINOPHILS % (AUTO) 1.4 % (0.0-6.0); HEMATOCRIT 30 % (39-51); HEMOGLOBIN 9.7 g/dL (13.5-17.5); LYMPHOCYTES # (AUTO) 0.9 K/uL (0.8-4.8); LYMPHOCYTES % (AUTO) 7.9 % (20.0-44.0); MEAN CORPUSCULAR HGB CONC 32 g/dl (31.0-36.0); MEAN CORPUSCULAR VOLUME 95 fL (80-96); MONOCYTES # (AUTO) 0.7 K/uL (0.1-1.30); MONOCYTES % (AUTO) 6.1 % (2.0-12.0); NEUTROPHILS # (AUTO) 9.1 K/uL (1.8-8.9); PLATELET COUNT (AUTO) 151 K/uL (150-450); RED BLOOD CELL COUNT(AUTO) 3.16 MIL/uL (4.5-6.0); WHITE BLOOD COUNT (AUTO) 10.8 K/uL (4.3-11.0)
[2021-11-18] MEDS: BLOOD SUGAR DIAGNOSTIC 1 EACH STRIP IN SCH ×4 (05:28→21:54)
[2021-11-18] MEDS: INSULIN REGULAR, HUMAN 100 UNIT/ML 3 ML VIAL SQ PRN ×2 (05:32→11:50)
[2021-11-18 05:42] LABS: CARBON DIOXIDE 38 mmol/L (21-32); CHLORIDE 99 mmol/L (98-107); CREATININE 2.5 mg/dL (0.6-1.3); GLUCOSE 301 mg/dL (74-106); POTASSIUM 3.9 mmol/L (3.5-5.1); SODIUM SERUM 142 mmol/L (136-145); UREA NITROGEN, BLOOD 72 mg/dL (7-18)
[2021-11-18 05:43] LABS: ALANINE AMINOTRANSFERASE 22 U/L (12-78); ALBUMIN 3.1 g/dL (3.4-5.0); ALKALINE PHOSPHATASE 79 U/L (46-116); ASPARTATE AMINOTRANSFERASE 13 U/L (15-37); BILIRUBIN,TOTAL 0.7 mg/dL (0.2-1.0); MAGNESIUM 1.5 mg/dL (1.8-2.4); PHOSPHORUS 2.3 mg/dL (2.5-4.9)
--- NOTE | 2021-11-18 07:00 | NUR ---
RN NOTE RECEIVED PATIENT ON BED, AWAKE, ALERT, AND VERBALLY RESPONSIVE. ABLE TO MAKE NEEDS KNOWN. BREATHING EVEN AND UNLABORED. PATIENT ON 15 L/MIN VIA NON-REBREATHER MASK WITH OXYGEN SATURATION OF 94, ON TELE, SR , PATIENT DENIES CHEST PAIN. SKIN WARM AND DRY TO TOUCH. IV SITES CLEAN , DRY AND INTACT, INDWELLING MORRIS CATHETER DRAINING LIGHT YELLOW URINE. ASSISTED PATIENT WITH TURNING AND REPOSITIONING. BED LOW, IN LOCKED POSITION. CALL LIGHT WITHIN REACH. WILL CONTINUE TO MONITOR.
[2021-11-18] MEDS: ASPIRIN 81 MG TAB.CHEW PO SCH (08:29)
[2021-11-18] MEDS: ATORVASTATIN 10 MG TABLET PO SCH (08:29)
[2021-11-18] MEDS: PANTOPRAZOLE 40 MG TABLET.DR PO SCH (08:29)
[2021-11-18] MEDS: predniSONE 20 MG TABLET PO SCH (08:29)
[2021-11-18] MEDS: HEPARIN SODIUM, PORCINE 5000 UNITS/1 ML VIAL SQ SCH ×2 (08:31→21:06)
[2021-11-18] MEDS: [UNRECOGNIZED DRUG - OTHER] PO SCH (08:56)
[2021-11-18] MEDS: IPRATROPIUM NEB FS 0.5 MG/2.5 ML AMPUL.NEB NEB SCH ×5 (09:37→23:01)
[2021-11-18] MEDS: methylPREDNISolone SOD SUCC 40 MG/ML VIAL IV SCH ×2 (09:42→16:12)
[2021-11-18] MEDS ORDERED: Magnesium 1GM/D5W 100ML PREMIX 100 ML IV SCH (11:00)
--- NOTE | 2021-11-18 12:00 | NUR ---
RN NOTES PT SITTING ON A CHAIR, SUPPORTIVE FAMILY AT THE BEDSIDE, ON NONREBREATHER MASK, O2 SAT WNL, CONTINUE TO MONITOR.
--- NOTE | 2021-11-18 16:55 | NUR ---
RN NOTES BG =590, FAMILY GIVING PT FOOD FROM HOME, TEACHING REINFORCED THAT HOW IMPORTANT IS TO KEEP BG WITHIN NORMAL LIMIT, SON STATED " DONT WORRY, HE GET INSULIN ". PT IS A/Ox4, NO DISTRESS NOTED, DR MADRIGAL NOTIFED, NEW ORDER RECEIVED, CONTINUE TO MONITOR .
[2021-11-18] MEDS ORDERED: INSULIN REGULAR, HUMAN 100 UNIT/ML 3 ML VIAL SQ ONE (17:30)
--- NOTE | 2021-11-18 18:00 | NUR ---
RN NOTES GD=019 AFTER 12 U OF REGULAR INSULINE IV ,PT IS ASYMPTOMATIC , NO DISTESS NOTED, DR MADRIGAL NOTIFED , WILL REPEAT BG .
[2021-11-18] MEDS: POTASSIUM PHOSPHATE MM 7.5 MMOL in IV NS 0.9% 100 ML IV SCH ×2 (18:05→21:05)
--- NOTE | 2021-11-18 18:42 | NUR ---
RN NOTES PT REMAINS ON 100 NONREBREATHER MASK , FAMILY AT BEDSIDE, MORRIS DRAINING TO GRAVITY, NO SIGNFICANT CHANGES NOTED ON THIS SHIFT, WILL ENDORSE TO WEB DESIGNER DEVELOPER NURSE FOR CONTINUITY OF CARE .
[2021-11-18] MEDS ORDERED: DEXTROSE 50%-WATER 50 ML DISP.SYRIN IV PRN (21:00)
[2021-11-18] MEDS ORDERED: INSULIN REGULAR, HUMAN 100 UNIT/ML 10 ML VIAL SQ ONE (22:30)
[2021-11-18] MEDS: *INSULIN REGULAR(HUMULIN R)HUM 100 UNIT/ML VIAL SQ PRN (22:31)
[2021-11-19] VITALS (20 sets, daily range): BP systolic 94–136; BP diastolic 45–70
[2021-11-19] MEDS: MEROPENEM 500 MG in IV NS 0.9% 50 ML IV SCH ×2 (00:40→13:02)
[2021-11-19] MEDS: IPRATROPIUM NEB FS 0.5 MG/2.5 ML AMPUL.NEB NEB SCH ×6 (03:34→23:53)
[2021-11-19 05:07] LABS: BASOPHILS % (AUTO) 0.1 % (0.0-2.0); EOSINOPHILS % (AUTO) 0.1 % (0.0-6.0); HEMATOCRIT 29 % (39-51); HEMOGLOBIN 9.6 g/dL (13.5-17.5); LYMPHOCYTES # (AUTO) 0.5 K/uL (0.8-4.8); LYMPHOCYTES % (AUTO) 5.1 % (20.0-44.0); MEAN CORPUSCULAR HGB CONC 33 g/dl (31.0-36.0); MEAN CORPUSCULAR VOLUME 94 fL (80-96); MONOCYTES # (AUTO) 0.7 K/uL (0.1-1.30); MONOCYTES % (AUTO) 6.2 % (2.0-12.0); NEUTROPHILS # (AUTO) 9.5 K/uL (1.8-8.9); NEUTROPHILS % (AUTO) 88.5 % (43.0-81.0); PLATELET COUNT (AUTO) 135 K/uL (150-450); RED BLOOD CELL COUNT(AUTO) 3.09 MIL/uL (4.5-6.0); WHITE BLOOD COUNT (AUTO) 10.7 K/uL (4.3-11.0)
[2021-11-19 05:22] LABS: CALCIUM, SERUM 8.7 mg/dL (8.5-10.1); CARBON DIOXIDE 33 mmol/L (21-32); CHLORIDE 96 mmol/L (98-107); CREATININE 2.6 mg/dL (0.6-1.3); MAGNESIUM 1.8 mg/dL (1.8-2.4); POTASSIUM 4.6 mmol/L (3.5-5.1); SODIUM SERUM 136 mmol/L (136-145); UREA NITROGEN, BLOOD 73 mg/dL (7-18)
[2021-11-19 05:33] LABS: GLUCOSE 364 mg/dL (74-106)
--- NOTE | 2021-11-19 08:00 | NUR ---
RN NOTES RECEIVED PATIENT IN THE MARY M ON O2-15L NON REBREATHER MASK. PATIENT O2-97%ON BEDSIDE MONITOR. PATIENT TOLERATING WELL, NO ACUTE RESPIRATORY DISTRESS, LAB VALUES CHECKED, RT BEDSIDE FOR BREATHING TREATHMENT. BS-323 MG/DL COVERAGE GIVEN, DUE MEDICATION ADMINISTERED, SON BEDSIDE. TOLERATED BREAKFAST WELL, MORRIS DRAINING YELLOW OUTPUT WITH SEDIMENTS. PATIENT ABLE TO TURN AND REPOSTION SELF. CALL LIGHT WITHIN TO REACH. SEEN HOSPITALIST NEW ORDER IS FOLLOW UP.
[2021-11-19] MEDS: BLOOD SUGAR DIAGNOSTIC 1 EACH STRIP IN SCH ×4 (08:10→21:44)
[2021-11-19] MEDS: ATORVASTATIN 10 MG TABLET PO SCH (08:45)
[2021-11-19] MEDS: methylPREDNISolone SOD SUCC 40 MG/ML VIAL IV SCH ×2 (08:45→16:59)
[2021-11-19] MEDS: ASPIRIN 81 MG TAB.CHEW PO SCH (08:45)
[2021-11-19] MEDS: PANTOPRAZOLE 40 MG TABLET.DR PO SCH (08:45)
[2021-11-19] MEDS: predniSONE 20 MG TABLET PO SCH (08:45)
[2021-11-19] MEDS: HEPARIN SODIUM, PORCINE 5000 UNITS/1 ML VIAL SQ SCH ×2 (08:48→21:38)
[2021-11-19] MEDS: INSULIN REGULAR, HUMAN 100 UNIT/ML 3 ML VIAL SQ PRN ×3 (08:49→17:14)
[2021-11-19] MEDS: [UNRECOGNIZED DRUG - OTHER] PO SCH (08:50)
--- NOTE | 2021-11-19 13:22 | NUR ---
RN NOTES BS-286 MG/DL COVERAGE GIVEN, PATIENT SITTING IN THE CHAIR, CAREVGIVER NEXT TO THE BED. SEEN PULMONALOGIST Dr WILLINGHAM , AND PER LAB VALUES PATIENT WILL STAY IN THE ICE ONE MORE DAY. PATIENT GETING CHEDULED ANTIBIOTIV IV DRIP INTACT. CONTINUED MONITORING.
--- NOTE | 2021-11-19 14:38 | NUR ---
RN NOTES GET NEW ORDER AMBIEN 5 MG PO PRN FOR INSOMNIA.
--- NOTE | 2021-11-19 17:17 | NUR ---
RN NOTES PATIENT GOING TO BE TRANSFER TO THE TELE UNIT ROOM 110 PER MD ORDER. BS-299 MG/DL COVERAGE GIVEN, DUE MEDICATION ADMINISTERED. URINE OUTPUT WAS 1000 ML.
--- NOTE | 2021-11-19 18:00 | NUR ---
RN NOTES TRANSFERRED PATIENT TO THE TELE UNIT ROOM 110 STABLE CONDITION. REPORT GIVEN ONCOMING NURSE FOLLOW PLAN OF CARE.
--- NOTE | 2021-11-19 19:30 | NUR ---
RN NOTES RECEIVED PT FOR CONTINUITY OF CARE. PATIENT A/OX4, SAO TOMEAN SPEAKING IN NO S/SX OF ACUTE DISTRESS AT THIS TIME; CURRENTLY ON 15L OF 02 VIA NRB MASK; WITH 02 SAT >95% AT THIS TIME.WITH IV ACCESS PATENT, INTACT AND FLUSHING WELL. MORRIS CATH IN PLACE, MODERATE URINE OUTPUT NOTED. PT'S SON @ BEDSIDE. WILL ENSURE SAFETY MEASURES WITHIN THE SHIFT. PATIENT BED ALARM IS ON. HEAD OF BED ELEVATED. BED IS LOCKED, IN LOWEST POSITION AND SIDE RAILS UP. CALL LIGHT WITHIN REACH OF THE PATIENT. APPLICABLE ISOLATION PRECAUTIONS IN PLACE. WILL CONTINUE TO MONITOR AND REASSESS FOR ANY CHANGES AND WILL CARRY OUT ANY ONGOING AND ACTIVE MD ORDER.
[2021-11-19] MEDS: *INSULIN REGULAR(HUMULIN R)HUM 100 UNIT/ML VIAL SQ PRN (21:51)
[2021-11-19] MEDS: ZOLPIDEM TARTRATE 5 MG TABLET PO PRN (21:53)
[2021-11-20] VITALS: BP 113/45
[2021-11-20] MEDS: MEROPENEM 500 MG in IV NS 0.9% 50 ML IV SCH ×2 (01:03→13:16)
[2021-11-20 04:00] VITALS: BP 114/57
--- NOTE | 2021-11-20 04:00 | NUR ---
RN NOTES NO NOTED CHANGES IN PATIENT CONDITION AT THIS TIME; NO SIGNS OF ACUTE RESPIRATORY DISTRESS; 02 SAT REMAINS >95%. AM PATIENT CARE RENDERED.WILL CONTINUE TO MONITOR AND REASSESS FOR ANY CHANGES THROUGHOUT THE SHIFT.
[2021-11-20] MEDS: IPRATROPIUM NEB FS 0.5 MG/2.5 ML AMPUL.NEB NEB SCH ×6 (04:09→23:24)
--- NOTE | 2021-11-20 05:35 | NUR ---
RT pt remains on nrb 15l at this time. pt spo2 95 to 98% while sitting up in chair at start of shift. while pt is in bed spo2 decreased to 90-93%. no fio2 changes due to pt spo2 readings. Addendum: 11/20/21 at 0537 by CHRISTOPHER ABRAMS RT Amended: Links added.
--- NOTE | 2021-11-20 06:35 | NUR ---
RN CLOSING NOTE: PATIENT REMAINS IN ROOM IN NO SIGNS OF RESPIRATORY DISTRESS, PATIENT STILL ON 15L OF 02 VIA NRB MASK ;TOLERATING WELL SATURATING @ >95%. PT'S SON STILL @BEDSIDE. SAFETY MEASURES IMPLEMENTED, BED IN LOWEST POSITION, LOCKED, SIDE RAILS UP, CALL LIGHT WITHIN REACH. ALL NEEDS AND ORDERS ADDRESSED DURING THE SHIFT. IV ACCESS MAINTAINED INTACT, SECURED AND FLUSHING WELL. ALL DUE MEDS GIVEN ORDERED & SCHEDULED ; PATIENT TOLERATED WELL. PATIENT KEPT CLEAN AND COMFORTABLE WITHIN THE SHIFT. PATIENT ENDORSED TO INCOMING SHIFT RN WITH STABLE VITAL SIGN AND FOR CONTINUITY OF CARE.
[2021-11-20] MEDS: ACETAMINOPHEN 325 MG TABLET PO PRN (06:56)
--- NOTE | 2021-11-20 06:58 | NUR ---
RN NOTES PT COMPLAINED OF CHEST PRESSURE 6/10; HR IS AT 108. PRN MEDS GIVEN FOR NOW. NOTIFIED ONCWESLEY SUBRAMANIAN (PADMINI,HOME HOSPICE RN) SECURED ORDER FOR EG AND NITRO SL 0.4 Q5MIN PRN FOR CHEST PAIN. WILL ENDORSE TO AM SHIFT TO CARRY OUT. OYSTER PREPARER MADE AWARE.
[2021-11-20] MEDS ORDERED: NITROGLYCERIN 0.4 MG/TAB BOTTLE SL PRN (07:00)
[2021-11-20 07:03] LABS: HEMATOCRIT 33 % (39-51); HEMOGLOBIN 10.2 g/dL (13.5-17.5); LYMPHOCYTES # (AUTO) 0.6 K/uL (0.8-4.8); LYMPHOCYTES % (AUTO) 5.5 % (20.0-44.0); MEAN CORPUSCULAR HGB CONC 31 g/dl (31.0-36.0); MEAN CORPUSCULAR VOLUME 97 fL (80-96); MONOCYTES # (AUTO) 0.7 K/uL (0.1-1.30); MONOCYTES % (AUTO) 6.6 % (2.0-12.0); NEUTROPHILS # (AUTO) 9.3 K/uL (1.8-8.9); NEUTROPHILS % (AUTO) 87.9 % (43.0-81.0); PLATELET COUNT (AUTO) 153 K/uL (150-450); RED BLOOD CELL COUNT(AUTO) 3.37 MIL/uL (4.5-6.0); WHITE BLOOD COUNT (AUTO) 10.6 K/uL (4.3-11.0)
[2021-11-20 07:26] LABS: CALCIUM, SERUM 9.2 mg/dL (8.5-10.1); CARBON DIOXIDE 27 mmol/L (21-32); CHLORIDE 96 mmol/L (98-107); CREATININE 2.7 mg/dL (0.6-1.3); SODIUM SERUM 138 mmol/L (136-145)
[2021-11-20 07:50] LABS: GLUCOSE 456 mg/dL (74-106); UREA NITROGEN, BLOOD 85 mg/dL (7-18)
[2021-11-20 08:00] VITALS: BP 111/59
--- NOTE | 2021-11-20 08:00 | NUR ---
RN NOTES BS-404 MG/DL COVERAGE GIVEN, GET TO ORDER INSULIN 10 MG/ML SCHEDULED, . PATIENT GETTING EKG AT [facility] BECAUSE OF PVC, AND AFIB, AND COMPLAINING OF CHEST PAIN. EKG RESULT NOTIFIED GREEN PRIZE PACKER Dr SALAZAR, AND PATIENT WILL SEEN VIA GREEN PRIZE PACKER. GET ORDER AMIODARONE DRIP. MORRIS DRAIN VIA GRAVITY WITH SEDIMENTS. PATENT ABLE TO TURN AND REPOSTION SELF IN THE BED. CALL LIGHT WITHIN TO REACH. DUE MEDICATION ADMINISTERED . SON NEXT TO THE BED.
[2021-11-20] MEDS: BLOOD SUGAR DIAGNOSTIC 1 EACH STRIP IN SCH ×4 (08:21→22:03)
[2021-11-20] MEDS: INSULIN REGULAR, HUMAN 100 UNIT/ML 3 ML VIAL SQ PRN ×3 (08:28→17:23)
[2021-11-20] MEDS: ASPIRIN 81 MG TAB.CHEW PO SCH (08:33)
[2021-11-20] MEDS: PANTOPRAZOLE 40 MG TABLET.DR PO SCH (08:33)
[2021-11-20] MEDS: ATORVASTATIN 10 MG TABLET PO SCH (08:33)
--- NOTE | 2021-11-20 08:36 | NUR ---
PATIENT ON NRB 15 L WITH SAT 96%. PATIENT REMAIN STABLE Addendum: 11/20/21 at 0838 by JULIENNE PLUMMER RT Amended: Links added.
[2021-11-20] MEDS: predniSONE 20 MG TABLET PO SCH (08:39)
[2021-11-20] MEDS: HEPARIN SODIUM, PORCINE 5000 UNITS/1 ML VIAL SQ SCH ×2 (08:40→21:53)
[2021-11-20] MEDS: methylPREDNISolone SOD SUCC 40 MG/ML VIAL IV SCH ×2 (08:42→18:05)
[2021-11-20] MEDS: [UNRECOGNIZED DRUG - OTHER] PO SCH (08:42)
[2021-11-20] MEDS ORDERED: AMIODARONE 450 MG in IV D5W 250 ML IV PRN (10:00)
[2021-11-20] MEDS ORDERED: AMIODARONE 150 MG in IV D5W 100 ML IV ONE (10:00)
[2021-11-20 10:02] LABS: ABG PCO2 44.9 mmHg (35.0-45.0); ABG PH 7.371 (7.350-7.450); ABG PO2 69.6 mmHg (75.0-100.0); COHb 0.3 % (0.5-1.5); MetHb 0.2 % (0.0-1.5); O2Hb 91.8 % (94.0-97.0); SITE, ABG Right Radial; VENT MODE, BG 15 L NRB
[2021-11-20] MEDS: AMIODARONE 450 MG in IV D5W 241 ML IV PRN ×2 (11:20→21:00)
--- NOTE | 2021-11-20 11:20 | NUR ---
rn notes Started amiodarone drip at this time 33.3 mg/ml hr x6hr, after blouse gin. hr-88 on bedside monitor. will follow up.
[2021-11-20 12:00] VITALS: BP 130/62
[2021-11-20] MEDS: INSULIN REGULAR, HUMAN 100 UNIT/ML 3 ML VIAL SQ SCH ×2 (13:51→17:21)
[2021-11-20 16:00] VITALS: BP 117/63
--- NOTE | 2021-11-20 18:30 | NUR ---
RN NOTES BS-346MG/DL COVERAGE GIVEN, VSS, PATIENT ON AMIODARONE DRIP 16.6ML/HR, PATIENT RFUSED SOB, NO PAIN. SITTING IN THE CHAIR. FAMILY NEXT TO THE BED. MORRIS DRAINING YELLOW OUTPUT WITH SEDIMENTS. SKIN TEAR ON LEFT WRIST APPLIED MEPILEX, AND HOT APPLICANT IV INFILTRATED SIDE. CALL LIGHT WITHIN TO REACH, ENDORSED ONCOMING NURSE FOLLOW PLAN OF CARE.
[2021-11-20 20:00] VITALS: BP 95/42
--- NOTE | 2021-11-20 20:00 | NUR ---
Received patient a/ox4.OOB to BS chair well tolerated.VSS.Afib per monitor with Amiodarone gtt infusing site intact.Patient son at bedside assisting with care.Patient denies chest pain or sob. With 15L NBR mask on.FC to gravity.Safety precaution maintained.Call light at bedside.
[2021-11-20] MEDS: *INSULIN REGULAR(HUMULIN R)HUM 100 UNIT/ML VIAL SQ PRN (21:56)
[2021-11-20] MEDS: ZOLPIDEM TARTRATE 5 MG TABLET PO PRN (22:03)
[2021-11-21] VITALS: BP 130/44
[2021-11-21] MEDS: MEROPENEM 500 MG in IV NS 0.9% 50 ML IV SCH ×2 (03:30→12:28)
[2021-11-21 04:00] VITALS: BP 130/80
[2021-11-21] MEDS: IPRATROPIUM NEB FS 0.5 MG/2.5 ML AMPUL.NEB NEB SCH ×6 (04:08→23:30)
--- NOTE | 2021-11-21 06:30 | NUR ---
Patient resting in no acute distress.VSS.Afib controlled. Amiodarone gtt infusing.AM CARE done. Denies pain or sob.Remains with O2 15L NRB mask.Saturation 90-97.Ambien administered as requested. Able to sleep couple of hrs.Kept safe and comfortable.
--- NOTE | 2021-11-21 07:00 | NUR ---
RN OPENING NOTE RECEIVED PATIENT IN BED AWAKE ALERT AND ORIENTED X4.PATIENT IS AT 15 L OF OXYGEN SATURATION VIA NONREBREATHER MASK. SON AT BEDSIDE. PATIENT'S OXYGEN SATURATION WAS IN MID 70S-80S ON SIMPLE FACE MASK. SWITCHED MASK TO NONREBREATHER MASK. PATIENT OXYGEN SATURATION IS IN 90S. RIGHT WRIST IV PATENT AND INTACT. PATIENT IS ON AMIODARONE DRIP. MORRIS CATHETER IN PLACE. NO KINKS OR OBSTRUCTION NOTED. CONTROLLED ATRIAL FIBRILLATION ON MONITOR. YELLOW COLORED URINE. BED LOCKED AND IN LOWEST POSITION. CALL LIGHT AND SIDE RAILS X2. WILL CONTINUE TO MONITOR.
[2021-11-21 07:25] LABS: BASOPHILS % (AUTO) 0.2 % (0.0-2.0); HEMATOCRIT 34 % (39-51); HEMOGLOBIN 10.7 g/dL (13.5-17.5); LYMPHOCYTES # (AUTO) 0.4 K/uL (0.8-4.8); LYMPHOCYTES % (AUTO) 3.1 % (20.0-44.0); MEAN CORPUSCULAR HGB CONC 31 g/dl (31.0-36.0); MEAN CORPUSCULAR VOLUME 97 fL (80-96); MONOCYTES # (AUTO) 0.7 K/uL (0.1-1.30); MONOCYTES % (AUTO) 5.3 % (2.0-12.0); NEUTROPHILS # (AUTO) 11.9 K/uL (1.8-8.9); NEUTROPHILS % (AUTO) 91.4 % (43.0-81.0); PLATELET COUNT (AUTO) 172 K/uL (150-450); RED BLOOD CELL COUNT(AUTO) 3.56 MIL/uL (4.5-6.0)
[2021-11-21 07:41] LABS: CALCIUM, SERUM 9.9 mg/dL (8.5-10.1); CARBON DIOXIDE 25 mmol/L (21-32); CHLORIDE 93 mmol/L (98-107); CREATININE 2.8 mg/dL (0.6-1.3); POTASSIUM 5.2 mmol/L (3.5-5.1); SODIUM SERUM 133 mmol/L (136-145)
[2021-11-21 08:00] VITALS: BP 135/53
[2021-11-21 08:02] LABS: UREA NITROGEN, BLOOD 92 mg/dL (7-18)
[2021-11-21 08:05] LABS: GLUCOSE 459 mg/dL (74-106)
--- NOTE | 2021-11-21 08:07 | NUR ---
RN NOTES DR. MADRIGAL NOTIFIED: BLOOD SUGAR PER LABORATORY - 459 MG/DL ACCUCHECK 408 MG/DL. PER DR. MADRIGAL, GIVEN THE SCHEDULED INSULIN 10 UNITS PLUS 20 UNITS PER SLIDING SCALE. THEN WILL RECHECK BLOOD SUGAR
[2021-11-21] MEDS: BLOOD SUGAR DIAGNOSTIC 1 EACH STRIP IN SCH ×4 (08:26→21:53)
[2021-11-21] MEDS: INSULIN REGULAR, HUMAN 100 UNIT/ML 3 ML VIAL SQ PRN ×3 (08:26→17:50)
[2021-11-21] MEDS: INSULIN REGULAR, HUMAN 100 UNIT/ML 3 ML VIAL SQ SCH ×3 (08:27→17:52)
--- NOTE | 2021-11-21 08:36 | NUR ---
RN NOTES DR. SALAZAR AT BEDSIDE, PER ANNA GARCIA TO DC AMIO DRIP POST 24 HRS [10:30]
[2021-11-21] MEDS: HEPARIN SODIUM, PORCINE 5000 UNITS/1 ML VIAL SQ SCH ×2 (08:44→21:13)
[2021-11-21] MEDS: predniSONE 20 MG TABLET PO SCH (08:45)
[2021-11-21] MEDS: methylPREDNISolone SOD SUCC 40 MG/ML VIAL IV SCH ×2 (08:45→17:35)
[2021-11-21] MEDS: ASPIRIN 81 MG TAB.CHEW PO SCH (08:45)
[2021-11-21] MEDS: ATORVASTATIN 10 MG TABLET PO SCH (08:45)
[2021-11-21] MEDS: PANTOPRAZOLE 40 MG TABLET.DR PO SCH (08:45)
[2021-11-21] MEDS: [UNRECOGNIZED DRUG - OTHER] PO SCH (09:00)
[2021-11-21] MEDS: APIXABAN 2.5 MG TABLET PO SCH ×2 (11:27→17:37)
[2021-11-21 12:00] VITALS: BP 125/63
[2021-11-21 16:00] VITALS: BP 127/70
[2021-11-21] MEDS: POLYETHYLENE GLYCOL 3350 17 GM POWD.PACK PO PRN (17:41)
--- NOTE | 2021-11-21 19:42 | NUR ---
RN CLOSING NOTE PATIENT RECEIVED IN BED. PATIENT IS ALERT AND ORIENTED X4. PATIENT IS STATELESS SPEAKING. NO S/S OF ACUTE DISTRESS AT THIS TIME.PATIENT IS CURRENTLY ON 15L OF 02 SAT VIA NONBREATHER MASK WITH 02 SAT 92% AT THIS TIME.IV ACCESS PATIENT, INTACT AND FLUSHING WELL. CONTROLLED ATRIAL FIBRILLATION ON MONITOR.MORRIS CATHETER IN PLACE. YELLOW URINE OUTPUT NOTED. PATIENT IS FAMILY IS AT BEDSIDE. PATIENT IS IN LOWEST POSITION, BEDSIDE TABLE AND CALL LIGHT WITHIN REACH.SIDE RAILS X2. HEAD OF BED IS ELEVATED.STANDARD PRECAUTIONS IN PLACE. WILL CONTINUE TO MONITOR ISOLATION PRECAUTIONS IN PLACE. WILL CONTINUE TO MONITOR AND REASSESS FOR ANY CHANGES AND WILL CARRY OUT ANY ONGOING AND ACTIVE MD ORDER.
[2021-11-21 20:00] VITALS: BP 132/50
--- NOTE | 2021-11-21 20:00 | NUR ---
XAVI RN NOTE RECEIVED PT SITTING IN CHAIR EATING DINNER, SON AT BED SIDE AND CAN STAY OVERNIGHT PER MD ORDERS. PT IS A/O X 3, NO SOB, NO DISTRESS OR DISCOMFORT NOTED. DENIES PAIN. ON NRM 15L O2, O2 SAT 92%. ON TELE MONITOR A FIB HR 107, RT WRIST SL #20 G INTACT AND PATENT. F/C INTACT AND PATENT DRAINING YELLOWISH COLOR URINE. ALL NEEDS ATTENDED. VSS. CONTINUE TO MONITOR HIM.
--- NOTE | 2021-11-21 20:03 | NUR ---
CLOSING NOTES ALL NEEDS MET AT THIS TIME. NOT IN ANY DISTRESS. RESTING WITH FAMILY AT BEDSIDE. REMAINS ON 15 L NRM. WILL ENDORSE TO NEXT SHIFT FOR [place].
[2021-11-21] MEDS: *INSULIN REGULAR(HUMULIN R)HUM 100 UNIT/ML VIAL SQ PRN (21:55)
[2021-11-22] VITALS: BP 112/61
[2021-11-22] MEDS: MEROPENEM 500 MG in IV NS 0.9% 50 ML IV SCH ×2 (00:18→12:31)
[2021-11-22 04:00] VITALS: BP 108/56
[2021-11-22] MEDS: IPRATROPIUM NEB FS 0.5 MG/2.5 ML AMPUL.NEB NEB SCH ×6 (05:12→23:33)
--- NOTE | 2021-11-22 06:35 | NUR ---
XAVI RN NOTE PT IN BED ASLEEP, AROUSABLE. NO DISTRESS OR DISCOMFORT NOTED. REMAIN ON NRM 15 L O2. O2 SAT 97%. ALL NEEDS ATTENDED. SIDE RAILS UP X 2 AND CALL LIGHT WITHIN REACH. SON AT BED SIDE. WILL ENDORSE TO DAY SHIFT NURSE FOR CONTINUE TO CARE.
--- NOTE | 2021-11-22 08:00 | NUR ---
XAVI RN NOTES PATIENT IS IN BED, ALERT AWAKE X3. PATIENT ON 15L NRM AND SATURATION 92% AT THIS TIME. ON TELE MONITOR, HR IS 78, SR. IV ON RIGHT WRIST, HEP LOCK INTACT, FLUSHED WELL. PATIENT CALL LIGHT WITHIN REACH. FAMILY AT BEDSIDE. WILL CONTINUE TO MONITOR.
[2021-11-22] MEDS: PANTOPRAZOLE 40 MG TABLET.DR PO SCH (09:21)
[2021-11-22] MEDS: ATORVASTATIN 10 MG TABLET PO SCH (09:21)
[2021-11-22] MEDS: APIXABAN 2.5 MG TABLET PO SCH ×2 (09:22→16:31)
[2021-11-22] MEDS: methylPREDNISolone SOD SUCC 40 MG/ML VIAL IV SCH ×2 (09:23→16:32)
[2021-11-22] MEDS: ASPIRIN 81 MG TAB.CHEW PO SCH (09:23)
[2021-11-22 09:25] LABS: BASOPHILS # (AUTO) 0.1 K/uL (0.0-0.2); BASOPHILS % (AUTO) 0.4 % (0.0-2.0); EOSINOPHILS % (AUTO) 0.1 % (0.0-6.0); HEMATOCRIT 30 % (39-51); HEMOGLOBIN 9.7 g/dL (13.5-17.5); LYMPHOCYTES # (AUTO) 0.6 K/uL (0.8-4.8); MEAN CORPUSCULAR HGB CONC 32 g/dl (31.0-36.0); MEAN CORPUSCULAR VOLUME 96 fL (80-96); NEUTROPHILS # (AUTO) 10.8 K/uL (1.8-8.9); NEUTROPHILS % (AUTO) 86.5 % (43.0-81.0); PLATELET COUNT (AUTO) 155 K/uL (150-450); RED BLOOD CELL COUNT(AUTO) 3.18 MIL/uL (4.5-6.0); WHITE BLOOD COUNT (AUTO) 12.4 K/uL (4.3-11.0)
[2021-11-22] MEDS: INSULIN REGULAR, HUMAN 100 UNIT/ML 3 ML VIAL SQ PRN ×2 (09:29→17:22)
[2021-11-22 09:33] LABS: CALCIUM, SERUM 9.2 mg/dL (8.5-10.1); CARBON DIOXIDE 28 mmol/L (21-32); CHLORIDE 96 mmol/L (98-107); CREATININE 2.4 mg/dL (0.6-1.3); MAGNESIUM 2.1 mg/dL (1.8-2.4); PHOSPHORUS 4.5 mg/dL (2.5-4.9); POTASSIUM 4.9 mmol/L (3.5-5.1); SODIUM SERUM 133 mmol/L (136-145)
[2021-11-22] MEDS: BLOOD SUGAR DIAGNOSTIC 1 EACH STRIP IN SCH ×4 (09:34→22:02)
[2021-11-22] MEDS: [UNRECOGNIZED DRUG - OTHER] PO SCH (09:40)
[2021-11-22 09:43] LABS: GLUCOSE 391 mg/dL (74-106); UREA NITROGEN, BLOOD 90 mg/dL (7-18)
[2021-11-22 09:55] VITALS: BP 138/54
--- NOTE | 2021-11-22 10:30 | NUR ---
XAVI RN NOTES DOCTOR CHRISTIANA KNITTING MACHINE OPERATOR [employer] THAT PATIENT ON 15L NRM SATURATION RANGE FROM 87-92%. NO NEW ORDER GIVEN AT THIS TIME. WILL CONTINUE TO MONITOR.
--- NOTE | 2021-11-22 11:08 | NUR ---
do rn note patient up on chair by family desaturated 78-%. wafer production lead worker called , per rt will do prn high flow dr hernandez business support coordinator called ok to place high flow as needed will f\u
--- NOTE | 2021-11-22 11:10 | NUR ---
RT NOTE RAPID RESPONSE CALLED DUE TO PT DESATURATING WHILE USING COMMODE. PT PLACED BACK IN BED ON NON REBREATHER 15L SATURATION BACK UP TO 94%. PLACED HIGH FLOW AT BEDSIDE TO USE NEEDED PER MD ORDER.
--- NOTE | 2021-11-22 11:20 | NUR ---
mohit rn note patient in bed now, rt at bedside on 15l nrm ,saturation 90% will monitor closely
--- NOTE | 2021-11-22 11:43 | NUR ---
XAVI RN NOTE RT AT BEDSIDE ON BREATHING TX WILL F\U
[2021-11-22 12:00] VITALS: BP 106/41
[2021-11-22] MEDS: INSULIN REGULAR, HUMAN 100 UNIT/ML 3 ML VIAL SQ SCH ×2 (12:27→17:26)
--- NOTE | 2021-11-22 12:47 | NUR ---
mohit rn nnote family at bedside having lunch able to eat 25% of diet , will cont to monitor
--- NOTE | 2021-11-22 14:03 | NUR ---
Family Intervention: SW called by patient's nurseGisele to assist with speaking with family. Per Gisele nice the pt.'s family sat pt. up on chair and pt. was found to be desaturating. This SW, nurseGisele and community health nurse staff, Mark met with pt.s' son, Ozzie Vernon [phone] and one of the patient's caregivers at bedside. The pt. was awake and alert. Mark discussed protocol of pressing call light if nursing care is needed. Son presents defensive, guarded and states they have but they want nursing staff to come to bedside faster. Family was notified that nursing staff will come as soon as they can as they have to care for multiple patient's. Ozzie expressed understanding & stated that is why he brought one of the patient's caregivers to stay with pt. at bedside to ensure someone is readily available to tend to the patient. Family was encouraged to call nursing staff before moving the patient to ensure the patient's safety. Family was agreeable to plan. Patient's son stated he would like the patient to receive CPR/DNI code status. DC Plan: Ozzie stated the plan is for pt. to [place] [id number] [facility] [id number]; [phone]] with family and caregivers and begin hospice care. Per Ozzie he just wants to be notified of anticipated discharge date so the hospice company can have everything ready for when the pt. arrives home. Noted SW notified Erinn GIBSON who will notify son of DC date. SW will remain available as needed.
--- NOTE | 2021-11-22 14:31 | NUR ---
XAVI RN NOTE EXPLAINED TO SON DONT GET PATIENT UP SELF IF LOW SATURATION, ALL NEEDS ATTENDED ROUNDS MADE, 94% SATURATION ,TARYN CLINICAL BIOSTATISTICS DIRECTOR NOTIFIED, WILL WORK ON IT , SON WANTS TO APPLY FOR HOSPICE
--- NOTE | 2021-11-22 14:43 | NUR ---
XAVI RN NOTE RT AT BEDSIDE ON BREATHING TX ORDERED FAMILY AT BEDSIDE
--- NOTE | 2021-11-22 15:21 | NUR ---
XAVI RN NOTE PER DR MADRIGAL OK TO DISCHARGE HOME WITH HOSPICE TARYN SPECIAL OFFICER [employer] NOTIFIED WILL F\U
[2021-11-22 16:00] VITALS: BP 122/53
[2021-11-22] MEDS ORDERED: PRED20TA GT (16:09)
[2021-11-22] MEDS ORDERED: IPRA0.2S9 NEB (17:01)
--- NOTE | 2021-11-22 17:26 | NUR ---
mohit rn note blood sugar 157mg\dl, 2 units with regular insulin given as ordered ,15 units insulin hold at this time will cont to monitor closely
--- NOTE | 2021-11-22 18:33 | NUR ---
XAVI RN NOTE NOTED DESATURATED 78% ON NON REBREATHER MASK , CALLED RT PLACED HIGH FLOW OF O2 60L 100% ,SATURATION AT THIS TIME 85% ,WILL MONITOR, PATIENT CODE DISCUSSED WITH PATIENT, NO INTUBATION, BUT YES CPR
[2021-11-22 20:00] VITALS: BP 117/52
--- NOTE | 2021-11-22 20:00 | NUR ---
XAVI RN NOTE RECEIVED PT IN BED WITH HOB ELEVATED. FAMILY AT BED SIDE. PT IS A/O X 3, RUSSIAN SPEAKING. PT GETS SOB ON EXCERTION, DENIES PAIN. PT ON HF AND NRM 15L O2, O2 SAT 88-94%. ON TELE MONITOR A FIB AND A FLUTTER HR 86, RT WRIST SL #20 G INTACT AND PATENT. F/C INTACT AND PATENT DRAINING YELLOWISH COLOR URINE. TALKED WITH SON REGARDING ADVANCE DIRECTIVES. PER SON ONLY DO CPR AND INTUBATION. ACCORDING TO SON PT WILL BE ON HOSPICE TOMORROW AND WILL TAKE HIM HOME. ALL NEEDS ATTENDED. CONTINUE TO MONITOR HIM.
[2021-11-22] MEDS: ACETAMINOPHEN 325 MG TABLET PO PRN (21:52)
[2021-11-22] MEDS: *INSULIN REGULAR(HUMULIN R)HUM 100 UNIT/ML VIAL SQ PRN (21:59)
--- NOTE | 2021-11-22 23:00 | NUR ---
XAVI RN NOTE PT O2 SAT DROPPED TO 70% FIXED HIS POSITION IN BED. RT AT BED SIDE. CHARGE INFORMED MAO DNP RECEIVED NEW ORDER FOR BIPAP. BUT SON REFUSED IT, STATES "KEEP IT STANDBY". O2 SAT CAME UP TO 89%. CONTINUE TO MONITOR.
[2021-11-23] VITALS: BP 120/74
--- NOTE | 2021-11-23 | NUR ---
XAVI RN NOTE PT O2 SAT DROPS AT TIMES TO 80% WHEN BECOME ANXIOUS OR MOVING IN BED. KEPT HIS HOB ELEVATED AND ASSIST HIM TO REPOSITIONED IN BED. CONTINUE TO MONITOR HIM.
--- NOTE | 2021-11-23 00:45 | NUR ---
XAVI RN NOTE FINALLY SON AGREES TO PUT BIPAP DUE TO O2 SAT KEEP ON DROPPING. AFTER BIPAP PT STATES "I FEEL BETTER". O2 SAT WENT UP TO 95%. CONTINUE TO MONITOR HIM.
[2021-11-23 04:00] VITALS: BP 146/59
[2021-11-23] MEDS: ACETAMINOPHEN 325 MG TABLET PO PRN ×2 (04:37→12:48)
[2021-11-23] MEDS: IPRATROPIUM NEB FS 0.5 MG/2.5 ML AMPUL.NEB NEB SCH ×6 (05:38→23:47)
--- NOTE | 2021-11-23 06:35 | NUR ---
XAVI RN NOTE PT IN BED AWAKE. NO DISTRESS OR DISCOMFORT NOTED. DENIES PAIN. ON TELE MONITOR A FLUTTER AND A FIB HR 84. PT REMAIN ON BIPAP BUT WANTS TO SWITCH BACK TO HF AND NRM O2 SAT 94%. RT CALLED. SIDE RAILS UP X 2 AND CALL LIGHT WITHIN REACH. WILL ENDORSE TO DAY SHIFT NURSE FOR CONTINUE TO CARE.
[2021-11-23] MEDS: BLOOD SUGAR DIAGNOSTIC 1 EACH STRIP IN SCH ×4 (07:45→22:17)
[2021-11-23 08:00] VITALS: BP 130/67
[2021-11-23] MEDS: PANTOPRAZOLE 40 MG TABLET.DR PO SCH (08:12)
[2021-11-23] MEDS: ASPIRIN 81 MG TAB.CHEW PO SCH (08:12)
[2021-11-23] MEDS: ATORVASTATIN 10 MG TABLET PO SCH (08:12)
[2021-11-23] MEDS: methylPREDNISolone SOD SUCC 40 MG/ML VIAL IV SCH ×2 (08:12→16:15)
[2021-11-23] MEDS: INSULIN REGULAR, HUMAN 100 UNIT/ML 3 ML VIAL SQ PRN ×3 (08:13→17:31)
[2021-11-23] MEDS: APIXABAN 2.5 MG TABLET PO SCH ×2 (08:13→16:11)
[2021-11-23] MEDS: INSULIN REGULAR, HUMAN 100 UNIT/ML 3 ML VIAL SQ SCH ×3 (08:15→17:30)
[2021-11-23] MEDS: [UNRECOGNIZED DRUG - OTHER] PO SCH (08:47)
--- NOTE | 2021-11-23 11:47 | NUR ---
RN NOTE SUGAR 157. 15 UNITS OF SCHEDULED REGULAR INSULIN HELD. SLIDING SCALE INSULIN GIVEN.
[2021-11-23 12:00] VITALS: BP 116/61
--- NOTE | 2021-11-23 12:10 | NUR ---
RN NOTE PT PLACED ON 80%FIO2 ON BIPAP BY RT PER PT'S SON REQUEST TO ATTEMPT LOWERING THE FIO2 FOR POSSIBLE FACILITY TRANSFER.
--- NOTE | 2021-11-23 12:25 | NUR ---
RN NOTE PT PLACED ON 90%FIO2 DUE TO O2 SAT OF 87%.
--- NOTE | 2021-11-23 12:46 | NUR ---
RN NOTE PT STABLE AT 94% SAT ON 80% FIO2 AT THIS TIME.
--- NOTE | 2021-11-23 14:00 | NUR ---
RN NOTE PT ON HIGH FLOW NC AT 100% FIO2 SAT 94% ON BEDSIDE MONITOR.
--- NOTE | 2021-11-23 15:39 | NUR ---
RN NOTE PT PLACED BACK ON BIPAP WITH 100% FIO2 TO MAINTAIN O2 SAT ABOVE 88%.
[2021-11-23 16:00] VITALS: BP 127/56
--- NOTE | 2021-11-23 16:11 | NUR ---
RN NOTE REFUSING PO MEDS AT THIS TIME DUE TO DIFFICULTY BREATHING AND ON BIPAP.
[2021-11-23] MEDS: LORAZEPAM 1 MG TABLET PO PRN (18:36)
[2021-11-23 20:00] VITALS: BP 116/69
--- NOTE | 2021-11-23 20:07 | NUR ---
RN NOTE RECEIVED CARE OF PATIENT FROM AM NURSE, PATIENT IN BED, AWAKE, A/O X3, HEBREW SPEAKING. FAMILY AT BEDSIDE ABLE TO TRANSLATE. PATIENT IN NO DISCOMFORT OR PAIN AT THIS TIME. ALL FAMILY'S QUESTIONS ANSWERED. PATIENT GETS SOB ON EXCERTION. PATIENT ON BIPAP WITH ORDERED SETTINGS, O2 SAT 94%. ON TELE MONITOR A FIB AND A FLUTTER HR 95. RT WRIST SL #20 G INTACT AND PATENT. F/C INTACT AND PATENT DRAINING YELLOWISH COLOR URINE. SAFETY MEASURES IMPLEMENTED. WILL CONTINUE TO MONITOR PATIENT.
[2021-11-23] MEDS: ZOLPIDEM TARTRATE 5 MG TABLET PO PRN (22:05)
[2021-11-23] MEDS: *INSULIN REGULAR(HUMULIN R)HUM 100 UNIT/ML VIAL SQ PRN (22:16)
[2021-11-24] VITALS: BP 126/66
[2021-11-24] MEDS: POLYETHYLENE GLYCOL 3350 17 GM POWD.PACK PO PRN (00:28)
[2021-11-24] MEDS: LORAZEPAM 1 MG TABLET PO PRN ×3 (00:39→18:47)
[2021-11-24 04:00] VITALS: BP 131/56
[2021-11-24] MEDS: IPRATROPIUM NEB FS 0.5 MG/2.5 ML AMPUL.NEB NEB SCH ×6 (04:19→23:47)
--- NOTE | 2021-11-24 06:31 | NUR ---
RN NOTES RESPIRATORY THERAPIST ATTEMPTED TO REMOVE PATIENT FROM BIPAP TREATMENT AND PLACE THE PATIENT ON HIGH FLOW O2 TWICE THIS SHIFT. ON BOTH OCCASIONS, PATIENT'S O2 SAT DECREASED TO LOW 80'S/ HIGH 70'S IN A MATTER OF MINUTES. WILL ENDORSE CARE OF PATIENT TO AM NURSE WHILE PATIENT IS ON BIPAP TREATMENT WITH ORDERED SETTINGS, O2 SAT 84%, WITH O2 SAT DECREASING WITH THE SLIGHTEST MOVEMENT. PATIENT IS A/O X3, ABLE TO MAKE NEEDS KNOWN. ALL NEEDS ANTICIPATED AND MET THROUGHOUT SHIFT. SAFETY MEASURES KEPT IN PLACE. WILL ENDORSE TO AM NURSE FOR CITLALY.
--- NOTE | 2021-11-24 07:30 | NUR ---
RN OPENING NOTE PT OBSERVED IN BED WITH HOB >30 DEGREES. PT IS ON BIPAP AT THIS TIME WITH ALL PRESCRIBED SETTINGS SAT >88% AT THIS TIME TOLERATING WELL WITH NO SIGNS OF DISTRESS OR LABORED BREATHING. PT IS A/OX3 GREEK SPEAKING ONLY GRANDSON IS AT BEDSIDE AT THIS TIME. FC IS IN PLACE DRAINING URINE TO GRAVITY. IV ACCESS R WRIST 20G NO FLUIDS INFUSING. BED IS LOCKED IN LOWEST POSITION X2 BED RAILS UP AND ALL HOSPITAL SAFETY MEASURES ARE IN PLACE. WILL CONTINUE TO MONITOR THIS SHIFT.
[2021-11-24 08:00] VITALS: BP 119/56
[2021-11-24] MEDS: BLOOD SUGAR DIAGNOSTIC 1 EACH STRIP IN SCH ×4 (08:18→21:52)
[2021-11-24] MEDS: INSULIN REGULAR, HUMAN 100 UNIT/ML 3 ML VIAL SQ SCH ×3 (08:33→17:48)
[2021-11-24] MEDS: ASPIRIN 81 MG TAB.CHEW PO SCH (09:12)
[2021-11-24] MEDS: PANTOPRAZOLE 40 MG TABLET.DR PO SCH (09:12)
[2021-11-24] MEDS: methylPREDNISolone SOD SUCC 40 MG/ML VIAL IV SCH ×2 (09:12→17:37)
[2021-11-24] MEDS: ATORVASTATIN 10 MG TABLET PO SCH (09:12)
[2021-11-24] MEDS: APIXABAN 2.5 MG TABLET PO SCH ×2 (09:16→17:39)
[2021-11-24] MEDS: [UNRECOGNIZED DRUG - OTHER] PO SCH (09:22)
[2021-11-24 12:00] VITALS: BP 114/60
[2021-11-24] MEDS: INSULIN REGULAR, HUMAN 100 UNIT/ML 3 ML VIAL SQ PRN (12:48)
[2021-11-24] MEDS: ACETAMINOPHEN 325 MG TABLET PO PRN (14:18)
[2021-11-24 16:00] VITALS: BP 123/63
--- NOTE | 2021-11-24 18:53 | NUR ---
RN CLOSING NOTE PT IS IN BED WITH HOB HIGH FOWLERS. PT IS ON BIPAP AT THIS TIME WITH ALL PRESCRIBED SETTINGS SAT >88% AT THIS TIME TOLERATING WELL WITH NO SIGNS OF DISTRESS OR LABORED BREATHING. PT IS A/OX3 GREENLANDIC SPEAKING ONLY FAMILY IS AT BEDSIDE AT THIS TIME. FC IS IN PLACE DRAINING URINE TO GRAVITY -1000ML. IV ACCESS R WRIST 20G NO FLUIDS INFUSING. BED IS LOCKED IN LOWEST POSITION X2 BED RAILS UP AND ALL HOSPITAL SAFETY MEASURES ARE IN PLACE. WILL ENDORSE TO FRONT MAKER NURSE FOR CITLALY.
--- NOTE | 2021-11-24 18:56 | NUR ---
RT NOTE PT rec'd on bipap on noted settings as charted. Mepilex in place. alarms are set and audible. ambu bag at bedside. bipap plugged into red outlet. Family at bedside. will continue to monitor closely. Addendum: 11/25/21 at 0544 by PAPA BULLOCK RT Amended: Links added.
--- NOTE | 2021-11-24 19:10 | NUR ---
RN NOTES PT OBSERVED IN BED WITH HOB >30 DEGREES. PT IS ON BIPAP AT THIS TIME WITH ALL PRESCRIBED SETTINGS SAT >94% AT THIS TIME TOLERATING WELL WITH NO SIGNS OF DISTRESS OR LABORED BREATHING. PT IS A/OX3 [place]URK[place] SPEAKING ONLY GRANDSON IS AT BEDSIDE AT THIS TIME. FC IS IN PLACE DRAINING URINE TO GRAVITY. IV ACCESS R WRIST 20G NO FLUIDS INFUSING. BED IS LOCKED IN LOWEST POSITION X2 BED RAILS UP AND ALL HOSPITAL SAFETY MEASURES ARE IN PLACE. WILL CONTINUE TO MONITOR THIS SHIFT.
[2021-11-24 20:00] VITALS: BP 118/64
[2021-11-24] MEDS: *INSULIN REGULAR(HUMULIN R)HUM 100 UNIT/ML VIAL SQ PRN (22:01)
--- NOTE | 2021-11-25 | NUR ---
RN NOTES FAMILY REFUSED PATIENT IS SLEEPING.
--- NOTE | 2021-11-25 00:22 | NUR ---
RT NOTE LATE ENTRY SCARRING ON NOSE NOTED. UNDER THE NOSE BIPAP MASK PLACED ON PT. RN AWARE. WILL CONTINUE TO MONITOR CLOSELY. Addendum: 11/25/21 at 0527 by PAPA BULLOCK RT Amended: Links added.
--- NOTE | 2021-11-25 00:25 | NUR ---
RN NOTES RT REPORTED A SCARRING OVER HIS NOSE. RT CHANGE HIS BIPAP MASK. PATIENT COMFORTABLE IN BED. SATURATION 93%. WILL CONTINUE TO MONITOR THE PATIENT.
[2021-11-25] MEDS: LORAZEPAM 1 MG TABLET PO PRN (01:56)
--- NOTE | 2021-11-25 02:00 | NUR ---
RN NOTES FAMILY CALLED AND CHECK THE PATIENT O2 SATURATION 85%. PATIENT IS RESTLESS. FAMILY REQUESTED TO GIVE ATIVAN. RT AT BEDSIDE CHECKING THE PATIENT. GRANDSON WANTED TO GIVE SLEEPING PILLS INSTEAD OF ATIVAN PO. @ 0205 AMBIEN GIVEN PER FAMILY REQUEST. RT ASSISTED THE PATIENT WHILE GIVING THE MEDICATION. SATURATION 82%. WILL CLOSELY MONITOR THE PATIENT
[2021-11-25] MEDS: ZOLPIDEM TARTRATE 5 MG TABLET PO PRN (02:05)
--- NOTE | 2021-11-25 02:45 | NUR ---
0245 Called to patient's room. Noted patient in respiratory distress, satting 68-70% on 100% FIO2 BIPAP. Repositioned for comfort and placed his HOB elevated for maximum oxygenation with very little help. Grandsons at bedside and aware of patient's condition. RTs at bedside attending to patient. [employer] EXAMINER Willi made aware with order ok BIPAP settings change to 20/12, FIO2 100%, RR 20. Patient's grandson insisted no intubation. Patient is being closely monitored.
[2021-11-25] MEDS: IPRATROPIUM NEB FS 0.5 MG/2.5 ML AMPUL.NEB NEB SCH (03:04)
--- NOTE | 2021-11-25 03:10 | NUR ---
RN NOTES PATIENT SATURATION STILL ON 80'S RT AND INFORMED PATIENT RESTLESS. RT AT BEDSIDE. WILL CONTINUE TO MONITOR
--- NOTE | 2021-11-25 03:30 | NUR ---
RN NOTES PATIENT SATURATION IS 75%. HR 107. PATIENT IS ALERT.RT AND CN AT BEDSIDE, PATIENT FAMILY AT BEDSIDE. @ 03:45 CODE BLUE ACTIVATED. BAGGING DONE, CPR STARTED BY RT, EPINEPHRINE GIVEN BY RN, @ 03:46 DR. PIRES, ER, AND ICU CAME IN. CONTINUOUS BAGGING AND CPR DONE. @03:48 EPINEPHRINE GIVEN. SEE CODE BLUE SHEET.
--- NOTE | 2021-11-25 05:30 | NUR ---
RN NOTES POST MORTEM CARE DONE. WILL WAITING THE MORTUARY FOR THE BODY TO BE PICK-UP.
--- NOTE | 2021-11-25 08:00 | NUR ---
mohit [facility] arrived, body released .called to son ok to released body and stated all belonging and bags and food throw it away
--- NOTE | 2021-11-25 08:15 | NUR ---
mohit rn note called again to son giovanni , spoke about belonging to pick up attendant, stated throw away everything ,aware that cord from cellphone, all food and big bags stated throw away everything
[2021-11-25] MEDS ORDERED: EPINEPHRINE (1:10,000) SYRINGE 1 MG/10 ML DISP.SYRIN IVP ONE (09:04)
== END 2021-11-25 12:15 ==
LOC: ER 19:27 → ICU 22:05 → TELE-TD 11-19 17:19
PROVIDERS: ADMIT Family Medicine; ATTEND Internal Medicine
PROC: 5A09357 Assistance with Respiratory Ventilation, Less than 24 Consecutive Hours, Continuous Positive Airway Pressure (ICD-10-PCS; principal; 2021-11-13)
PROC: 5A09457 Assistance with Respiratory Ventilation, 24-96 Consecutive Hours, Continuous Positive Airway Pressure (ICD-10-PCS; 2021-11-23)
PROC: 5A12012 Performance of Cardiac Output, Single, Manual (ICD-10-PCS; 2021-11-25)
DX: I50.33 Acute on chronic diastolic (congestive) heart failure (principal); E43 Unspecified severe protein-calorie malnutrition; I21.A1 Myocardial infarction type 2; N17.0 Acute kidney failure with tubular necrosis; J96.21 Acute and chronic respiratory failure with hypoxia; J96.22 Acute and chronic respiratory failure with hypercapnia; E87.1 Hypo-osmolality and hyponatremia; E87.2 Acidosis; J98.11 Atelectasis; Z16.12 Extended spectrum beta lactamase (ESBL) resistance; N39.0 Urinary tract infection, site not specified; J44.1 Chronic obstructive pulmonary disease with (acute) exacerbation; I50.9 Heart failure, unspecified; B96.20 Unspecified Escherichia coli [E. coli] as the cause of diseases classified elsewhere; D63.8 Anemia in other chronic diseases classified elsewhere; E11.22 Type 2 diabetes mellitus with diabetic chronic kidney disease; J84.10 Pulmonary fibrosis, unspecified; E87.5 Hyperkalemia; E88.09 Other disorders of plasma-protein metabolism, not elsewhere classified; I25.10 Atherosclerotic heart disease of native coronary artery without angina pectoris; I27.20 Pulmonary hypertension, unspecified; I45.10 Unspecified right bundle-branch block; N18.9 Chronic kidney disease, unspecified; Z51.5 Encounter for palliative care; Z66 Do not resuscitate; Z87.891 Personal history of nicotine dependence; Z95.1 Presence of aortocoronary bypass graft; Z99.81 Dependence on supplemental oxygen; Z79.899 Other long term (current) drug therapy; Z88.5 Allergy status to narcotic agent; E11.65 Type 2 diabetes mellitus with hyperglycemia
CPT/HCPCS: 36415; 36600; 71045-TC; 71250-TC; 76770-TC; 80048-TC; 80053-TC; 80061-TC; 80076-TC; 81001; 82728-TC; 82803-TC; 82962-TC; 83540-TC; 83605-TC; 83735-TC; 83880; 84100-TC; 84132-TC; 84443-TC; 84484-TC; 85025-TC; 85730-TC; 87081-TC; 87086-TC; 87186-TC; 92950-TC; 93307-TC; 93970-TC; 94660; 94760-TC; 94762-TC; 94799-TC; 99082-TC; A6403; G0378; J0171; J0282; J0696; J1644; J1815; J1940; J2185; J2920; J2930; J3105; J3475; J3490; J7030; J7050; J7060